=== PATIENT | female | born 1960 | race Caucasian/White ===

== ENCOUNTER 2020-01-09 21:55 | Emergency (ER) | payer OTHER, SELFPAY ==
--- NOTE | ~2020-01-09 | XR_ITS ---
EXAMINATION: XR chest 2V DATE: 01/09/2020 23:14 INDICATION: Syncope and weakness TECHNIQUE: PA and lateral views of the chest are obtained. COMPARISON: 11/22/2018 FINDINGS: There is scarring of the lung apices. The lungs are free of acute opacities. There is no pl eural effusion or pneumothorax. The cardiomediastinal silhouette is normal. There is mild thoracic sp ondylosis. IMPRESSION: 1. No acute cardiopulmonary abnormality. Reviewed, dictated and finalized at location A. [employer]
[2020-01-09 22:05] VITALS: BP 123/79; PULSE 85; RESP 22; TEMP 36.1; O2SAT 100
--- NOTE | 2020-01-09 22:37 | ED.SYNCOPE ---
HPI - Syncope General Chief Complaint: Syncope Stated Complaint: seizure ?? 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 She states that she went and saw a movie with some friends, and was then out having a couple drinks afterwards when she became very hot and lightheaded, and then had a syncopal episode. Per friend reports that the pt was sitting in a chair talking when she began to stare off and then had a syncopal episode. They state that they lowered the pt to the ground and didn't think she was breathing, so they tried to start CPR tried . They note that the pt was LOC for roughly 20 seconds and did not have any convulsions and was not postictal. The pt notes that she hadn't eaten much and that she has had similar episodes in the past. The only symptoms the pt reports at this time is fatigue and chest wall tenderness. She denies any SOB, VINSON, CP, N/V/D, or ABD pain. MD complaint: loss of consciousness Onset (ago): minute(s) Duration of episode: 20 -: second(s) Description of event: stopped breathing (possibly) Prodromal symptoms: lightheaded and other (hot) Witnessed: Yes - by Bystander Context: alcohol use Injuries sustained associated with event: none Current symptoms: other (fatigue and chest wall tenderness) History: previous syncopal episode Treatments prior to arrival: CPR (tried but the pt pulled away immediately) Related Data Allergies Allergy/AdvReac Type Severity Reaction Status Date / Time acyclovir Allergy Unknown Unknown Verified 05/19/19 07:19 Sulfa (Sulfonamide Allergy Unknown Verified 09/09/18 08:06 Antibiotics) Review of Systems Review of Systems: All systems reviewed & are unremarkable except as noted in HPI and below Constitutional: Constitutional: Reports fatigue and Reports other (felt hot - resolved) Cardiovascular: Cardiovascular: Denies chest pain, Reports lightheadedness (resolved) and Reports other (chest wall tenderness) Respiratory: Respiratory: Denies dyspnea Gastrointestinal: Gastrointestinal: Denies abdominal pain, Denies diarrhea, Denies nausea and Denies vomiting Neurologic: Reports syncope and Denies headache(s) [facility] Past Medical History Medical History Arthritis Chicken pox Constipation Depression Herpes Mumps Pain Pneumonia Simple endometrial hyperplasia Surgical History Surgical History H/O section 1981 H/O: hysterectomy 2010 Family History Family History Mother Diabetes mellitus Father Family history of malignant neoplasm Social History Social History Smoking status: Never smoker Alcohol intake: current Exam Narrative: Exam Narrative: GENERAL: Well-appearing, well-nourished, and in no acute distress. HEAD: Normocephalic, atraumatic. ENT: Mucous membranes moist. CHEST: Clear to auscultation. No respiratory distress. Mild sternal tenderness HEART: Regular rate and rhythm. Normal peripheral pulses. ABDOMEN: Soft, nontender, nondistended. EXTREMITIES: Normal range of motion. No edema. SKIN: Warm, dry, no rash. NEURO: Alert and oriented x3. Course Course Emergency Course: Patient initially dizzy when going from lying to sitting and could not stand up. After IV fluid patient feels much better is able to ambulate without difficulty. Informed of results. Discharge home. Vital Signs Vital signs: Vital Signs Temperature 97 F L 01/09/20 22:05 Pulse Rate 85 01/09/20 22:05 Respiratory Rate 22 H 01/09/20 22:05 Blood Pressure 123/79 01/09/20 22:05 Pulse Oximetry 100 01/09/20 22:05 Temperature 97 F L 01/09/20 22:05 Pulse Rate 84 01/09/20 23:48 Respiratory R
--- NOTE | 2020-01-09 22:44 | ECG_ITS ---
Measurements Intervals [place] Rate: 79 P: 61 KS: 159 QRS: 42 QRSD: 93 T: 59 QT: 382 QTc: 439 Interpretive Statements SINUS RHYTHM POSSIBLE LEFT ATRIAL ENLARGEMENT BASELINE ARTIFACT- I, II, AVR, AVL BORDERLINE ECG Electronically Signed On 01-10-2020 8:22:58 [employer]ASE[employer]ALL SCOUT by Mo Burns D.O.
[2020-01-09 23:02] VITALS: BP 119/73
[2020-01-09 23:03] VITALS: BP 119/73; BP 124/81; PULSE 82; PULSE 83; RESP 16; O2SAT 100
[2020-01-09] MEDS: SODIUM CHLORIDE 0.9% IV 1,000 ML 999 ML IV CONT (23:04)
[2020-01-09 23:12] LABS: Basophils Absolute Auto 0.1 K/mm3 (0.0-0.1); Basophils Percent Auto 0.9 % (0.2-1.2); Eosinophils Absolute Auto 0.2 K/mm3 (0-0.3); Hematocrit 37.1 % (37.0-47.0); Hemoglobin 11.8 g/dL (12.0-15.0); Immature Granulocyte Absolute 0.04 K/mm3 (0.00-0.031); Immature Granulocyte Percent A 0.7 % (0-0.5); Lymphocytes Percent Auto 27.9 % (18.3-44.2); Mean Corpuscular HGB Conc 31.8 g/dl (32-36); Mean Corpuscular Hemoglobin 27.1 pg (26-34); Mean Corpuscular Volume 85.1 fl (80-100); Mean Platelet Volume 9.6 fl (7.4-10.4); Monocytes Absolute Auto 0.4 K/mm3 (0.1-0.6); Monocytes Percent Auto 7.6 % (2.6-8.5); Neutrophils Absolute Auto 3.2 K/mm3 (1.3-6.7); Neutrophils Percent Auto 59.9 % (45.5-73.1); Platelet Count Result 199 k/mm3 (150-375); Red Blood Count 4.36 M/mm3 (4.2-5.4); Red Cell Distribution Width 12.7 % (11.5-14.5); White Blood Count 5.4 K/mm3 (4.5-10.0)
[2020-01-09 23:17] LABS: Blood Urea Nitrogen 16 mg/dL (7-17); Calcium 9.2 mg/dL (8.4-10.2); Carbon Dioxide 23 mmol/L (22-30); Chloride 99 mmol/L (98-107); Estimated Glomerular Filt Rate > 60; Glucose 91 mg/dL (65-105); Potassium 3.4 mmol/L (3.4-5.0); Sodium 137 mmol/L (137-145)
[2020-01-09 23:28] LABS: INR 0.9; Prothrombin Time 12.1 Seconds (11.1-14.7)
[2020-01-09 23:29] LABS: Partial Thromboplastin Time 24.2 SECONDS (22.3-36.8); Troponin I < 0.012 ng/mL (0.000-0.034)
[2020-01-09 23:48] VITALS: BP 133/73; PULSE 84; RESP 17; O2SAT 100
[2020-01-10 00:51] LABS: Add Urine Microscopic? YES; Appearance Urine Clear (Clear); Bacteria Urine Trace /hpf; Bilirubin Urine Negative (Negative); Blood Urine 1+ (Negative); Color Urine Yellow (Yellow); Glucose Urine UA Negative (Negative); Ketones Urine Trace mg/dL (Negative); Leukocyte Esterase Ur Negative LEU/UL (Negative); Mucus Urine Rare /lpf; Nitrate Urine Negative (Negative); Protein Urine Negative (Negative); RBC Urine 0-2 /hpf (0-2); Specific Grav Ur 1.011 (1.001-1.035); Squamous Epithelial Cell Urine Many /hpf (Few); Urobilinogen Urine Negative mg/dL (<2.0)
--- NOTE | 2020-01-15 20:26 | PC.NURSE ---
LATE ENTRY This note is being entered to document information to the patient's record. The following information was omitted on [01/09/2020], ns stop time [id number] by [sobia patel].
== END 2020-01-10 01:10 | disposition home or self-care (01) ==
PROVIDERS: Emergency Provider Emergency Medicine; PCP Internal Medicine
DX: R55 Syncope and collapse (principal); M19.90 Unspecified osteoarthritis, unspecified site
CPT/HCPCS: 36415; 71046; 80048; 81001; 84484; 85025; 85610; 85730; 93005; 96360; 99284; J7030

== ENCOUNTER 2020-05-14 14:44 | Outpatient (CLI) | payer OTHER, SELFPAY ==
--- NOTE | 2020-05-14 15:00 | ECHO_ITS ---
Patient Info Name: Giuliano Beckett Age: 60 years : 1960 Gender: Female Ht: 68 in Wt: 170 lbs BSA: 1.94 m2 HR: 65 bpm BP: 144 / 82 mmHg Heart Rhythm: Sinus Rhythm Technical Quality: Good Exam Date: 05/14/2020 3:08 PM Exam Location: [facility] Pulmonary Patient Status: Outpatient Admit Date: 05/14/2020 Staff Ordering Physician: Naima Morrison NP Math Teacher: Tucker Peterson RDCS Attending Provider: Naima Morrison NP Referring Physician: Tamiko SIMON; Exam Type: CA echo doppler color flow Study Info Indications R60.9 - Edema, unspecified Complete two-dimensional, color flow and Doppler transthoracic echocardiogram is performed. History/Risk Factors Edema, HTN. Summary 1. Left ventricular chamber dimension is normal. 2. Left ventricular systolic function is normal, estimated at 55-60%. 3. The left ventricular diastolic function is normal. 4. E/e' 8 is not elevated. Left Ventricle E/e' 8 is not elevated. Left ventricular chamber dimension is normal. Left ventricular systolic function is normal, estimated at 55-60%. The left ventricular diastolic function is normal. Right Ventricle Right ventricular chamber dimension is normal. Right ventricular systolic function is normal. Left Atria Left atrial chamber dimension is normal. Right Atria Right atrial chamber dimension is normal. Aortic Valve The aortic valve is trileaflet. There is no aortic valve stenosis. There is no aortic valve regurgitation. Pulmonic Valve There is no pulmonic regurgitation. Mitral Valve There is no mitral valve stenosis. There is no mitral valve regurgitation. Tricuspid Valve There is no tricuspid valve regurgitation. Pericardium/Pleural There is no pericardial effusion. Inferior Vena Cava Normal inferior vena cava with >50% collapse upon inspiration consistent with normal right atrial pressure, 5 mmHg. Aorta The aortic root size at the sinus of Valsalva is normal. Left Ventricular Outflow Tract Name Value Normal LVOT 2D LVOT Diameter 1.7 cm LVOT Doppler LVOT Peak Gradient 3 mmHg LVOT Mean Gradient 2 mmHg LVOT VTI 20 cm LVOT VTI/AV VTI Ratio 0.8 LVOT Stroke Volume 47 ml LVOT CO 3.5 l/min LVOT CI 1.8 l/min/m2 Mitral Valve Name Value Normal MV Doppler MV Decel [place] 329 cm/s2 MV PHT 64 ms MV Area (PHT) 3.5 cm2 4.0-5.0 MV Diastolic Function MV E Peak Velocity 72 cm/s MV A Peak Velocity 57 c
== END 2020-05-14 14:45 | disposition home or self-care (01) ==
PROVIDERS: PCP Internal Medicine; Visit Provider Nurse Practitioner
DX: R55 Syncope and collapse (principal); R60.9 Edema, unspecified; I10 Essential (primary) hypertension
CPT/HCPCS: 93306

== ENCOUNTER → 2021-12-19 09:35 | Outpatient (CLI) | payer OTHER, SELFPAY ==
[2021-12-19 19:02] LABS: SARS-CoV-2 RNA PCR Positive
== END ==
PROVIDERS: PCP Internal Medicine; Visit Provider Nurse Practitioner
DX: U07.1 COVID-19 (principal); R05.9 Cough, unspecified; J02.9 Acute pharyngitis, unspecified
CPT/HCPCS: C9803; U0003; U0005

== ENCOUNTER 2022-10-10 09:01 | Outpatient (CLI) | payer OTHER, SELFPAY ==
[2022-10-10 18:55] LABS: Basophils Absolute Auto 0.1 K/mm3 (0.0-0.1); Eosinophils Absolute Auto 0.2 K/mm3 (0-0.3); Eosinophils Percent Auto 3.1 % (0-4.4); Hematocrit 39.2 % (37.0-47.0); Hemoglobin 12.1 g/dL (12.0-15.0); Immature Granulocyte Absolute 0.01 K/mm3 (0.00-0.031); Immature Granulocyte Percent A 0.2 % (0-0.5); Lymphocytes Absolute Auto 1.29 K/mm3 (0.9-3.2); Lymphocytes Percent Auto 22.1 % (18.3-44.2); Mean Corpuscular HGB Conc 30.9 g/dl (32-36); Mean Corpuscular Hemoglobin 26.9 pg (26-34); Mean Corpuscular Volume 87.1 fl (80-100); Mean Platelet Volume 9.7 fl (7.4-10.4); Monocytes Absolute Auto 0.5 K/mm3 (0.1-0.6); Monocytes Percent Auto 8.9 % (2.6-8.5); Neutrophils Absolute Auto 3.8 K/mm3 (1.3-6.7); Neutrophils Percent Auto 64.7 % (45.5-73.1); Platelet Count Result 275 k/mm3 (150-375); Red Cell Distribution Width 12.9 % (11.5-14.5); White Blood Count 5.8 K/mm3 (4.5-10.0)
[2022-10-10 19:22] LABS: Vitamin D 25 Hydroxy 41.7 ng/mL
[2022-10-10 21:08] LABS: Alanine Aminotransferase 72 U/L (6-35); Albumin Level 4.6 g/dL (3.5-5.1); Alkaline Phosphatase 159 U/L (38-126); Anion Gap 14 mmol/L (8-16); Aspartate Amino Transferase 60 U/L (14-36); Bilirubin,Total 0.5 mg/dL (0.2-1.3); Blood Urea Nitrogen 13 mg/dL (7-17); Calcium 10.5 mg/dL (8.4-10.2); Carbon Dioxide 27 mmol/L (22-30); Chloride 107 mmol/L (98-107); Estimated Glomerular Filt Rate > 60; Glucose 100 mg/dL (65-110); Potassium 5.1 mmol/L (3.4-5.0); Sodium 148 mmol/L (137-145)
[2022-10-10 23:20] LABS: Folic Acid > 20.0 ng/mL (2.76->20)
== END 2022-10-10 09:02 | disposition home or self-care (01) ==
LOC: ANHGOSHLAB 09:05
PROVIDERS: PCP Internal Medicine; Visit Provider Internal Medicine
DX: J40 Bronchitis, not specified as acute or chronic (principal); R05.9 Cough, unspecified; R53.83 Other fatigue
CPT/HCPCS: 36415; 80053; 82306; 82607; 82746; 84443; 85025

== ENCOUNTER → 2022-10-10 09:14 | Outpatient (CLI) | payer OTHER, SELFPAY ==
--- NOTE | ~2022-10-10 | XR_ITS ---
XR chest 2V DATE: 10/10/2022 09:27 INDICATION: Cough, bronchitis TECHNIQUE: 2 views COMPARISON: January 09, 2020 PA and lateral chest FINDINGS: Normal heart size. No hilar or mediastinal enlargement. Azygos lobe, normal variant. Moderate hyperinflation of the lungs. No pulmonary infiltrate or consoli dation, pleural effusion or pulmonary vascular congestion or pneumothorax. IMPRESSION: No active cardiopulmonary disease Reviewed, dictated and finalized at location A. TIC TOOL MAKER
== END ==
PROVIDERS: PCP Internal Medicine; Visit Provider Internal Medicine
DX: R05.9 Cough, unspecified (principal); J40 Bronchitis, not specified as acute or chronic
CPT/HCPCS: 71046

== ENCOUNTER 2022-10-25 15:35 | Outpatient (CLI) | payer OTHER, SELFPAY ==
[2022-10-25 19:06] LABS: Alanine Aminotransferase 30 U/L (6-35); Albumin Level 4.4 g/dL (3.5-5.1); Alkaline Phosphatase 71 U/L (38-126); Anion Gap 6 mmol/L (8-16); Aspartate Amino Transferase 46 U/L (14-36); Bilirubin,Total 0.5 mg/dL (0.2-1.3); Blood Urea Nitrogen 16 mg/dL (7-17); Carbon Dioxide 30 mmol/L (22-30); Chloride 104 mmol/L (98-107); Estimated Glomerular Filt Rate > 60; Glucose 90 mg/dL (65-110); Potassium 4.1 mmol/L (3.4-5.0); Sodium 140 mmol/L (137-145)
== END 2022-10-25 15:36 | disposition home or self-care (01) ==
LOC: ANHGOSHLAB 15:37
PROVIDERS: PCP Internal Medicine; Visit Provider Internal Medicine
DX: E87.0 Hyperosmolality and hypernatremia (principal); R74.8 Abnormal levels of other serum enzymes
CPT/HCPCS: 36415; 80053

== ENCOUNTER 2023-02-27 15:08 | Outpatient (CLI) | payer OTHER, SELFPAY ==
[2023-02-27 21:20] LABS: Free T4 Free Thyroxine 0.98 ng/mL (0.78-2.19)
[2023-02-27 21:45] LABS: Hemoglobin A1C 5.6 % (<5.7)
== END 2023-02-27 15:09 | disposition home or self-care (01) ==
LOC: ANHGOSHLAB 15:10
PROVIDERS: PCP Internal Medicine; Visit Provider Nurse Practitioner
DX: Z13.9 Encounter for screening, unspecified (principal)
CPT/HCPCS: 36415; 83036; 84439; 84443

== ENCOUNTER 2023-09-26 08:15 | Outpatient (CLI) | payer OTHER, SELFPAY ==
[2023-09-26 18:56] LABS: Basophils Absolute Auto 0.1 K/mm3 (0.0-0.1); Basophils Percent Auto 0.9 % (0.2-1.2); Eosinophils Absolute Auto 0.2 K/mm3 (0-0.3); Eosinophils Percent Auto 2.8 % (0-4.4); Hematocrit 44.1 % (37.0-47.0); Hemoglobin 13.5 g/dL (12.0-15.0); Immature Granulocyte Absolute 0.01 K/mm3 (0.00-0.031); Immature Granulocyte Percent A 0.1 % (0-0.5); Lymphocytes Absolute Auto 1.55 K/mm3 (0.9-3.2); Lymphocytes Percent Auto 23.2 % (18.3-44.2); Mean Corpuscular HGB Conc 30.6 g/dl (32-36); Mean Corpuscular Hemoglobin 26.8 pg (26-34); Mean Corpuscular Volume 87.7 fl (80-100); Mean Platelet Volume 9.7 fl (7.4-10.4); Monocytes Absolute Auto 0.5 K/mm3 (0.1-0.6); Monocytes Percent Auto 6.9 % (2.6-8.5); Neutrophils Absolute Auto 4.4 K/mm3 (1.3-6.7); Neutrophils Percent Auto 66.1 % (45.5-73.1); Platelet Count Result 253 k/mm3 (150-375); Red Blood Count 5.03 M/mm3 (4.2-5.4); Red Cell Distribution Width 13.9 % (11.5-14.5); White Blood Count 6.7 K/mm3 (4.5-10.0)
[2023-09-26 19:38] LABS: Alanine Aminotransferase 29 U/L (6-35); Albumin Level 4.6 g/dL (3.5-5.1); Alkaline Phosphatase 58 U/L (38-126); Anion Gap 6 mmol/L (8-16); Aspartate Amino Transferase 36 U/L (14-36); Bilirubin,Total 0.5 mg/dL (0.2-1.3); Blood Urea Nitrogen 17 mg/dL (7-17); Calcium 9.6 mg/dL (8.4-10.2); Carbon Dioxide 30 mmol/L (22-30); Chloride 104 mmol/L (98-107); Cholesterol 280 mg/dL (0-200); Estimated Glomerular Filt Rate > 60; Glucose 83 mg/dL (65-110); HDL Direct 109 mg/dL; Potassium 4.9 mmol/L (3.4-5.0); Sodium 140 mmol/L (137-145); Triglycerides 71 mg/dL (<150)
[2023-09-26 19:48] LABS: LDL Cholesterol Direct 119 mg/dL
== END 2023-09-26 08:16 | disposition home or self-care (01) ==
PROVIDERS: PCP Internal Medicine; Visit Provider Nurse Practitioner
DX: R74.8 Abnormal levels of other serum enzymes (principal); E55.9 Vitamin D deficiency, unspecified
CPT/HCPCS: 36415; 80053; 80061; 82306; 85025

== ENCOUNTER 2024-01-28 07:26 | Outpatient (CLI) | payer MEDICARE, SELFPAY ==
--- NOTE | ~2024-01-28 | DEXA_ITS ---
Bone Density Report Name: RODRIGO LAY Age: 63 Sex: Female Ethnicity: White Date of : 1960 Indication: postmenopausal; screening for osteoporosis; parental hip fracture; hysterectomy; Referring Provider: PRINCESS RIOJAS Study: Bone densitometry was performed. Exam Date: January 28, 2024 Accession number: [id number] Bone Density: Region BMD T-score Z-score Classification AP Spine(L1-L4) 0.983 -0.6 1.2 Normal Femoral Neck (Left) 0.617 -2.1 -0.5 Osteopenia Total Hip (Left) 0.827 -0.9 0.3 Normal Femoral Neck (Right) 0.676 -1.6 0.0 Osteopenia Total Hip (Right) 0.859 -0.7 0.6 Normal Total Hip Mean 0.843 -0.8 0.5 Normal World Health Organization criteria for BMD impression classify patients as: Normal (T-score at or above -1.0), Osteopenia (T-score between -1.0 and -2.5), or Osteoporosis (T-score at or below -2.5). 10-year Fracture Risk(1): Major Osteoporotic Fracture 20% Hip Fracture 2.0% Reported Risk Factors: [place] (), Neck BMD=0.617, BMI=27.6, parental fracture (1) FRAX(R) Version 3.08. Fracture probability calculated for an untreated patient. Fracture probability may be lower if the patient has received treatment. Clinical Information Provided by Patient: Parent has had a hip fracture Has used the following medications: Vitamin D Has the following medical conditions: Hysterectomy Patient maximum height was 68 Drinks caffeinated beverages Onset of menses at age 13 Number of children 1 Impression: The patient has low bone mass, based on the Left Femoral Neck T-score. The patient has an estimated ten-year risk of hip fracture of 2% and an estimated ten-year risk of major fracture of 20%, based on the WHO FRAX algorithm. The patient has risk factors, including: parental hip fracture. Discussion: BONE DENSITY IS LOW AT ONE OR MORE SKELETAL SITES. THE PATIENT'S BMD AND CLINICAL RISK FACTORS CONTRIBUTE TO THIS PATIENT'S INCREASED RISK OF FRACTURE. This patient's lowest T-score is low at one or more skeletal sites. It meets the World Health Organization's (WHO) criteria for ?low bone mass? (T-score between -1.0 and -2.5). The patient's 10-year risk of a major osteoporotic fracture as calculated by FRAX exceeds the threshold where pharmacological therapy is recommended by the National Osteoporosis Foundation (NOF). However, all treatment decisions require clinical judgment and consideration of individual patient factors, including patient preferences, comorbidities, previous drug use, risk factors not captured in the FRAX model (e.g., frailty, falls, vitamin D deficiency, increased bone turnover, interval significant decline in bone density) and possible under or overestimation of fracture risk by FRAX. The patient should follow a healthful lifestyle (good nutrition with
--- NOTE | ~2024-01-28 | MM_ITS ---
EXAMINATION: MM screening calvin BI w derek HISTORY: Screening mammogram TECHNIQUE: Craniocaudal and mediolateral oblique 3-D tomosynthesis images were obtained and synthetic 2-D images were generated. CAD analysis was submitted and interpreted. COMPARISON: 05/07/2017 bilateral screening mammogram BREAST PARENCHYMAL COMPOSITION: There are scattered areas of fibroglandular density. FINDINGS: A soft tissue mass is suggested in the posterior aspect of the central right breast. Diagno stic right mammogram and right breast ultrasound examination are recommended for further evaluation. Otherwise no suspicious mass, architectural distortion, malignant calcification, skin thickening or r etraction or significant new or developing density of either breast is detected. IMPRESSION: 1. Soft tissue mass suggested in posterior central right breast 2. Diagnostic right mammogram and right breast ultrasound examination are recommended BI-RADS Category 0: Incomplete: Needs additional imaging evaluation. Reviewed, dictated and finalized at location A. ENTICE PATTERN MAKER IMPRESSION: 1. Soft tissue mass suggested in posterior central right breast 2. Diagnostic right mammogram and right breast ultrasound examination are recom mended BI-RADS Category 0: Incomplete: Needs additional imaging evaluation.
== END 2024-01-28 07:27 | disposition home or self-care (01) ==
PROVIDERS: PCP Internal Medicine; Visit Provider Internal Medicine
DX: Z12.31 Encounter for screening mammogram for malignant neoplasm of breast (principal); Z78.0 Asymptomatic menopausal state; R92.8 Other abnormal and inconclusive findings on diagnostic imaging of breast; M85.852 Other specified disorders of bone density and structure, left thigh; M85.851 Other specified disorders of bone density and structure, right thigh
CPT/HCPCS: 77063; 77067; 77080

== ENCOUNTER 2024-02-21 06:02 | Day surgery (SDC) | payer MEDICARE, SELFPAY ==
[2024-01-15 07:07] VITALS: BMI 27.2
[2024-02-21 06:25] VITALS: BMI 27.1
[2024-02-21 06:26] VITALS: BP 124/86; PULSE 60; RESP 16; TEMP 36.9; O2SAT 100
--- NOTE | 2024-02-21 07:05 | PM.HPGS ---
History of Present Illness History of Present Illness Consent: Risks, benefits, and alternatives have been discussed and questions answered. Patient agrees to proceed with procedure. Chief complaint: Family history of colon cancer Narrative: Giuliano Beckett is a 63 year old female in colonoscopy. Patient's current weight appetite and bowel movements are normal. Patient denies abdominal pain. She has had no bloating. Family history is significant that her father had colon cancer. Her mother also had colon polyps. Previous colonoscopy 5 years ago was unremarkable. Review of Systems Review of Systems: Review of systems noncontributory. [facility] Past Medical History Medical History Arthritis Chicken pox Constipation Depression Herpes Lumbar stenosis Lumbar stenosis Mumps Pain Pneumonia Simple endometrial hyperplasia Surgical History Surgical History H/O section 1981 H/O: hysterectomy 2010 Family History Family History Mother Diabetes mellitus Father Family history of malignant neoplasm Social History Social History (Updated 05/23/23 @ 10:05 by Cristiana Casey) Social History: Caffeine-daily Smoking status: Never smoker Alcohol intake: current Drinks per week: 6 Alcohol use details: Pt drinks socially. Substance use: never Substance use type: does not use Lack of Transportation: No Lack of Food: Never True Current Housing: I Have Housing Concerned About Future Housing: No Difficulty Paying Gas/Electric Bills: No Difficulty Paying for Meds: No Currently Unemployed: No Education: Bachelor's Degree Difficulty w/ Childcare or Family Care: No Meds Home Medications and Allergies Home Medications Medication Instructions Recorded Confirmed Type cholecalciferol (vitamin D3) 50 2,000 unit PO DAILY 04/02/20 02/21/24 History mcg (2,000 unit) capsule (Vitamin D3) estradiol 10 mcg vaginal insert 10 mcg vaginal DIRECTED 02/04/24 02/21/24 History (Imvexxy Maintenance Pack) hydroxyzine HCl 25 mg tablet 25 mg PO HS PRN Insomnia 02/04/24 02/21/24 History Allergies Allergy/AdvReac Type Severity Reaction Status Date / Time acyclovir Allergy Unknown Swelling Verified 02/21/24 06:17 Sulfa (Sulfonamide Allergy Unknown Swelling Verified 03/28/24 06:17 Antibiotics) Vital Signs Vital Signs - 24 hr 02/21/24 06:26 Temperature 98.5 F Pulse Rate 60 Respiratory Rate 16 Blood Pressure 124/86 Pulse Oximetry 100 Oxygen Delivery Room Air Exam Narrative: Physical exam reveals patient to be alert. Vital Signs stable. HEENT exam is unremarkable. Patient is anicteric. Lungs are clear to auscultation and percussion. Heart is without murmur or extra sounds. Abdomen bowel sounds are present soft nontender no organomegaly. Digital external rectal exam is normal. Assessment and Plan Assessment and plan (1) Family hx of colon cancer: Code(s): Z80.0 - Family history of malignant neoplasm of digestive organs Status: Acute Assessment and Plan: Patient's father has had colon cancer. her mother has had colon polyps. Plan for surveillance colonoscopy now consider this at 5 year intervals.
--- NOTE | 2024-02-21 07:07 | WPDANESEPPF ---
Anes - Initial Pre Proc Eval Procedure: Operation Date: 02/21/24 07:30 Proposed Procedures p Colonoscopy - Pelon Daly MD Date/Time: 02/21/24 07:07 Surgeon: Pelon Daly MD Pre Op Diagnosis: Family history of colon cancer Patient Data Age: 63 Gender: F Height: 1.73 m Weight: 81.1 kg Last Vital Signs Temp 36.9 C 02/21/24 06:26 Pulse 60 02/21/24 06:26 Resp 16 02/21/24 06:26 BP 124/86 02/21/24 06:26 Pulse Ox 100 02/21/24 06:26 O2 Del Method Room Air 02/21/24 06:26 Allergies Allergy/AdvReac Type Severity Reaction Status Date / Time acyclovir Allergy Unknown Swelling Verified 02/21/24 06:17 Sulfa (Sulfonamide Allergy Unknown Swelling Verified 02/21/24 06:17 Antibiotics) Home Medications Medication Instructions Recorded Confirmed Type cholecalciferol (vitamin D3) 50 2,000 unit PO DAILY 04/02/20 02/21/24 History mcg (2,000 unit) capsule (Vitamin D3) estradiol 10 mcg vaginal insert 10 mcg vaginal DIRECTED 02/04/24 02/21/24 History (Imvexxy Maintenance Pack) hydroxyzine HCl 25 mg tablet 25 mg PO HS PRN Insomnia 02/04/24 02/21/24 History Patient hx anesthesia problems: none Family hx anesthesia problems: none Results Review: All pre-operative results and documents have been reviewed as part of the pre-operative evaluation. [facility] Past Medical History Medical History Arthritis Chicken pox Constipation Depression Herpes Lumbar stenosis Lumbar stenosis Mumps Pain Pneumonia Simple endometrial hyperplasia Surgical History Surgical History H/O section 1981 H/O: hysterectomy 2010 Family History Family History Mother Diabetes mellitus Father Family history of malignant neoplasm Social History Social History Social History: Caffeine-daily Smoking status: Never smoker Alcohol intake: current Drinks per week: 6 Alcohol use details: Pt drinks socially. Substance use: never Substance use type: does not use Lack of Transportation: No Lack of Food: Never True Current Housing: I Have Housing Concerned About Future Housing: No Difficulty Paying Gas/Electric Bills: No Difficulty Paying for Meds: No Currently Unemployed: No Education: Bachelor's Degree Difficulty w/ Childcare or Family Care: No Anes - Eval Final PreProcedure Day of Procedure 02/21/24 07:07 Patient weight: overweight Heart: regular rate and rhythm Lungs: clear to auscultation Airway: Mallampati scale class II Neurological: alert and oriented Last oral intake: >/= 8 hours ASA classification: II Emergent: no Anesthetic plan: proceed Anesthesia type and monitoring: general GIVS and standard monitoring Results Review: All pre-operative results and documents have been reviewed as part of the pre-operative evaluation. Informed Consent: The patient's anesthetic plan and its attendant risks and benefits were discussed with the patient/family/POA. Questions were solicited and answers provided to the satisfaction of the patient/family/POA.
[2024-02-21] MEDS: LACTATED RINGERS 1,000 ML 150 ML IV CONT (07:12)
[2024-02-21 07:41] VITALS: BP 127/77; PULSE 72; RESP 14; O2SAT 100
[2024-02-21 07:51] VITALS: BP 144/70; PULSE 60; RESP 16; O2SAT 100
[2024-02-21 08:01] VITALS: BP 154/99; PULSE 68; RESP 16; O2SAT 100
--- NOTE | 2024-02-21 08:06 | WPDANESPN ---
Anes - Prog Note Post-Op Date/Time: 02/21/24 08:06 Cardiovascular status: normal Respiratory status: normal Airway patency: baseline Mental status: baseline Post-Op hydration status: normal Vital Signs: Last Vital Signs Temp 36.9 C 02/21/24 06:26 Pulse 60 02/21/24 07:51 Resp 16 02/21/24 07:51 BP 144/70 H 02/21/24 07:51 Pulse Ox 100 02/21/24 07:51 O2 Del Method Room Air 02/21/24 07:51 Pain Score (VAS): 0/10 I/O: Intake & Output 02/20/24 02/21/24 02/21/24 23:59 07:59 15:59 Intake Total 500 Balance 500 Patient Feedback: Patient satisfied with anesthetic care.
== END 2024-02-21 08:18 | disposition home or self-care (01) ==
PROVIDERS: PCP Internal Medicine; Visit Provider Internal Medicine Gastroenterology
PROC: 0DJD8ZZ Inspection of Lower Intestinal Tract, Via Natural or Artificial Opening Endoscopic (ICD-10-PCS; CPT 45378; principal; 2024-02-21 07:30)
DX: Z80.0 Family history of malignant neoplasm of digestive organs (principal); Z12.11 Encounter for screening for malignant neoplasm of colon; K64.8 Other hemorrhoids
CPT/HCPCS: 45378

== ENCOUNTER 2024-03-10 10:50 | Outpatient (CLI) | payer MEDICARE, SELFPAY ==
--- NOTE | ~2024-03-10 | MMUS_ITS ---
EXAMINATION: MM diagnostic calvin RT w derek, US breast RT complete HISTORY: Follow-up right breast asymmetries TECHNIQUE: Additional 3-D tomosynthesis images of the right breast were performed and synthetic 2-D i mages were generated. CAD analysis was submitted and interpreted. High resolution complete right kar st ultrasound was performed. COMPARISON: 01/28/2024 BREAST PARENCHYMAL COMPOSITION: Not dense: There are scattered areas of fibroglandular density. FINDINGS: MAMMOGRAPHIC FINDINGS: There are no suspicious masses, calcifications or architectural distortion in the right breast to sug gest malignancy. ULTRASOUND: Complete US of all 4 quadrants of the right breast and retroareolar region was reviewed. 12:30, 4 cm from the nipple, there is a benign-appearing intramammary lymph node measuring 4 mm. No suspicious ma sses to suggest malignancy. IMPRESSION: 1. No evidence for malignancy in the right breast. 2. Routine yearly screening mammogram and regular clinical breast examination are recommended. BI-RADS CATEGORY 2 - BENIGN FINDINGS Reviewed, dictated and finalized at location B. IMPRESSION: 1. No evidence for malignancy in the right breast. 2. Routine yearly screening mammogram and regular clinical breast examination a re recommended. BI-RADS CATEGORY 2 - BENIGN FINDINGS
== END 2024-03-10 10:51 | disposition home or self-care (01) ==
LOC: ANHIMG 10:55
PROVIDERS: PCP Internal Medicine; Visit Provider Obstetrics & Gynecology Gynecology
DX: R92.8 Other abnormal and inconclusive findings on diagnostic imaging of breast (principal)
CPT/HCPCS: 76641; 77061; 77065; G0279

== ENCOUNTER 2025-03-05 00:30 | Day surgery (SDC) | payer MEDICARE, OTHER, SELFPAY ==
--- NOTE | 2025-02-19 09:53 | PC.NURSE ---
Report to the Outpatient Waiting Room, entrance under the green pavilion located off [facility], at time _10 AM on date _03/05/25 . Planned Procedure Time: ___1200 NOON .? Time changes happen often and if your time is changed the preop area will call you the afternoon before. - You and your visitor will be asked to self-screen and do not enter if you have any COVID symptoms. Please call surgeon if you need to reschedule. - A mask is optional within the hospital at this time. Patients may have clear liquids (water, carbonated beverages, clear teas, apple juice) until 3 hours prior to surgery ( 9AM) with a maximum of 20 ounces. - No food from midnight until time of surgery and no smoking, or chewing tobacco (or any form of nicotine). No chewing gum, candy or mints. Take only the following medications with a SIP of water on the morning of surgery: NONE DO NOT STOP ANY OF YOUR OTHER PRESCRIPTION MEDICATIONS PRIOR TO SURGERY EXCEPT THE FOLLOWING Hold all vitamins and supplements for 3 days per anesthesiologist. LAST DOSE 03/01/25 Medications to discontinue per physician NONE Please no make-up, nail czech, hairspray, perfume, deodorant, or body powder the day of surgery.? No jewelry (including any body piercings) or valuables the day of surgery, leave them at home.? Please take a shower or bath the night before, or the morning of, surgery with an antibacterial soap.? Wear comfortable, loose fitting clothing.? Children are encouraged to wear pajamas. - Jewelry must be removed prior to entering the operating room.? Rings and piercings that are not removed may be cut off. - The hospital will not accept responsibility for valuables.? - Please leave all valuables, including medications, at home the day of surgery. If you are going home after surgery, a licensed road oiling truck driver must drive you home.? - NO public transportation without another adult if you receive anesthesia. - We recommend that an adult stay with you for 24 hours following discharge. - We also recommend that you do not drive, make important decision, drink alcoholic beverages, or take any drugs that were not prescribed by your health care provider for at least 24 hours after your discharge time. Follow any additional instructions given to you from your surgeon. Telephone instructions given to _PATIENT and asked if any additional questions and then verbalized understanding. Patient advised to call surgeon office or pre surgery nurse liaison [phone] if any additional questions.
[2025-02-19 10:04] VITALS: BMI 27.2
--- OUTSIDE RECORDS SUMMARY | 2025-03-05 00:33 | XMS_ITS ---
Author Organization [facility] Address [address] [place], [place] [id number] Care Team Providers Care Windows Admin Name Role Phone RIKKI BROWN Unavailable [phone] Jesse Giordano Unavailable Unavailable Allergies Allergen (clinical drug ingredient) Drug/Non Drug Allergy documented on EMR Reaction Allergy Type Onset Date Status Substance with sulfonamide structure and antibacterial mechanism of action (substance) Sulfa Antibiotics Unknown Drug Allergy Active REASON FOR VISIT bunion Medications Medication SIG (Take, Route, Fr equency, Duration) Notes Start Date End Date Status hydrOXYzine HCl 25 MG 1 tablet as needed Orally Once a day Active Social History Tobacco Use: Social History Observation Description Date Details (start date - stop date) Never Smoker NA - NA Tobacco Control (Standard) Question Answer Notes Tobacco use: Nonsmoker Vital Signs Height 68 in 07/24/2024 Weight 178 lbs 07/24/2024 BMI 27.06 kg/m2 07/24/2024 Height-cm 172.72 cm 07/24/2024 Weight-kg 80.74 kg 07/24/2024 Encounters Encounter Location Date Provider Diagnosis [facility] [address] [place], [place] [id number] 07/24/2024 RIKKI BROWN Tailor's bunion of right foot M21.621 ; Tailor's bunion of left foot M21.622 ; Pain in right foot M79.671 and Left foot pain M79.672 Assessments Encounter Date Diagnosis (ICD Code) Assessment Notes Treatment Notes Treatment Clinical Notes Section Notes 07/24/2024 Tailor's bunion of right foot (ICD-10 - M21.621) 07/24/2024 Tailor's bunion of left foot (ICD-10 - M21.622) 07/24/2024 Pain in right foot (ICD-10 - M79.671) 07/24/2024 Left foot pain (ICD-10 - M79.672) 07/24/2024 Other Surgical correction was discussed. The patient opted not to proceed at this time. Plan Of Treatment Treatment Notes Assessment Notes Other Surgical correction was discussed. The patient opted not to proceed at this time. Next Appt Details Provider Name:RIKKI NUÑEZ, 03/05/2025 12:00:00 PM, [address], [place], [address], Provider Name:RIKKI C BRANDEN NUÑEZ, 03/12/2025 09:10:00 AM, [address], [facility], [place], [place], [id number], Progress Notes * John LAYCaliOB:1960 ( 64 yo F)Acc No.[id number]:07/24/2024 Progress Notes Patient: Giuliano CALDERON Provider: Leslie Brown DPM :1960 A ge:64 Y S ex:Female Date:07/24/2024 Address:[address] [place], [place] [address] Subjective: * Chief Complaints: * B union * HPI: H PI: New Complaint P atient presents for a new patient consultation. Patient complains of an issue to the lateral side of bilateral feet. Patient states she thinks she has bunions. She has had pain for about a year. Patient denies any injury. MA: rosey. * Medical History: * Surgical History: * Hospitalization/Major Diagno stic Procedure: * Family History: F ather: unknown, cancer, lung disease. M other: unknown, Cancer, kidney stones. B rother: unknown, kidney stones, hypertension. * Social History: T obacco Use: T obacco Control (Standard) T obacco use: N onsmoker D rugs/Alcohol: D o you drink alcohol?: Yes. * Medications: T akinghydrOXYzine HCl 25 MG Tablet 1 tablet as needed Orally Once a day Medication List reviewed and reconciled with the patientTaking hydrOXYzine HCl 25 MG Tablet 1 tablet as needed Orally Once a day Medication List reviewed and reconciled with the patient * Allergies: S ulfa Antibiotics Objective: * Vitals: S hoe Size: 9.5-10, Wt:178lbs, Wt-k.74 kg, Ht: 68 in, Ht-cm: 172.72 cm, BMI:27.06Index, Body Surface Area: 1.97. * Examination: C onstitutional: Constitutional T he patient is awake, alert, well developed, well groomed and well nourished. . D ermatologic: Skin findings: S kin is warm, dry, supple with no breaks in the skin. . Nail pathology: N ails 1-5 bilateral are normal in appearance and thickness. No discoloration. . Ulcer: T here is no evidence of ulceration noted at this time . Hyperkeratotic Skin Lesion T here is no evidence of hyperkeratosis . M usculoskeletal: Muscle Strength M uscle strength is 5/5 in regards to dorsiflexion, plantarflexion, inversion, and eversion in bilateral lower extremities. . Foot Structure T he foot structure is noted to be normal bilaterally . Pain on palpation T here is no pain on palpation . Tailors Bunion T here is a laterally prominent 5th metatarsal head of the right and left foot. . Gait T here is normal gait noted . N eurologic: Muscle power: 5 /5 bilaterally . Gross sensation G ross sensation is intact to light touch. . V ascular: Dorsalis pedis pulse: 2 /4 bilateral . Posterior tibial pulse: 2 /4 bilaterally . Capillary refill: l ess than 3 seconds bilaterally . Temperature gradient: w ithin normal limits . ? X -Ray: LEFT FOOT I ncreased 4th IM ankle and prominent 5th MTH.? RIGHT FOOT I ncreased 4th IM ankle and prominent 5th MTH.? Assessment: * Assessment: 1. T ailor's bunion of right foot - M21.621 (Primary) 2 . T ailor's bunion of left foot - M21.622 3 . P ain in right foot - M79.671 4 .?Left foot pain - M79.672 Plan: * Treatment: * Immunizations: Immunization record has been reviewed and updated. * Procedure Codes: * Billing Information: * Visit Code: 02243 Office Visit, New Pt., Level 3. * Procedure Codes: * Sign off status: Completed true * Provider: Leslie Brown DPM Date: 0 07/24/2024 Generated for Isrrael weir/Joey/Herminio on: 0 03/05/2025 12:33 AM CDT History and Physical Notes * HPI (History of Present Illness) Category Sub-Category Detail Notes Category Not es HPI New Complaint Patient presents for a new patient consultation. Patient complains of an issue to the lateral side of bilateral feet. Patient states she thinks she has bunions. She has had pain for about a year. Patient denies any injury. MA: sea Examination Category Sub-Category Detail Notes Category Not es X-Ray LEFT FOOT Increased 4th IM ankle and p rominent 5th MTH RIGHT FOOT Increased 4th IM ank le and prominent 5th MTH Constitutional Constitutional The patient is a wake, alert, well developed, well groomed and well nourished. Dermatologic Skin findings: Skin is warm, dr y, supple with no breaks in the skin. Nail pathology: Nails 1-5 bilateral are normal in appearance and thickness. No discoloration. Ulcer: There is no evidence of ulceration noted at this time Hyperkeratotic Skin Lesion There is no e vidence of hyperkeratosis Musculoskeletal Muscle Strength Muscle strength is 5/5 in regards to dorsiflexion, plantarflexion, inversion, and eversion in bilateral lower extremities. Pain on palpation There is no pain on palpation Tailors Bunion There is a laterally prominent 5th metatarsal head of the right and left foot. Foot Structure The foot structure i s noted to be normal bilaterally Gait There is normal gait noted Neurologic Muscle power: 5/5 bilaterally Gross sensation Gross sensation is i ntact to light touch. Vascular Dorsalis pedis pulse: 2/4 bilateral Posterior tibial pulse: 2/4 bilaterally Capillary refill: less than 3 seconds bilaterally Temperature gradient: within normal limi ts
--- OUTSIDE RECORDS SUMMARY | 2025-03-05 00:33 | XMS_ITS | Clinical Summary ---
Author Organization [facility] Address [address] [place] [address] Care Team Providers Care Rn Compliance Name Role Phone Jan Shepherd MD, Onel Forbes Primary Care Provider Allergies Active Allergy Reactions Criticality Noted Date Comments Sulfa (Sulfonamide Antibiotics) Medications Imvexxy Maintenance Pack 10 mcg insert vaginal insert 1 Active ALPRAZolam (XANAX) 0.5 mg tablet Take 1 tablet (0.5 mg total) by mouth 2 (two) times a day 2 tablet 3 Active Additional Information Patient not taking.Reported on 11/14/2023 hydrOXYzine (ATARAX) 25 mg tablet TAKE 1 TO 2 TABLETS BY MOUTH EVERY NIGHT AT BEDTIME NEEDED 3 Active Active Problems Problem Noted Date Diagnosed Date Varicose veins of leg with pain, left 07/12/2023 Assessment & Plan (11/14/2023 8:42 AM DYE RANGE OPERATOR CLOTH): Status post left lower extremity stab phlebectomies, doing well since the procedure. No issues with the phlebectomy sites. I have recommended continuing her compression therapy can follow-up as needed. 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 Risks benefits alternatives to left lower extremity stab phlebectomies discussed, risks including bleeding, infection, need further surgery. She wished to proceed. Melanocytic nevus of face 11/21/2021 Melanocytic nevi of right ear 11/21/2021 Palpitations 06/22/2015 Overview (03/02/2017): Palpitations Immunizations Immunization Administration Dates Next Due Influenza, Quadrivalent, Spl it, Preservative Free, Intramuscular 10/03/2021 ZOSTER Recombinant 11/22/2020,09/21/2020 Surgical History Surgery Date Site/Laterality Comments VARICOSE VEIN SURGERY 09/28/2023 Left x24 LLE phlebs Medical History Medical History Date Comments No pertinent past medical history Social History Tobacco Use Types Packs/Day Years Used Date Smoking Tobacco: Never Smokeless Tobacco: Never Personal Safety Answer Date Recorded Getting School Help Needed Not on file 11/09 Comments Unknown Sex and Gender Information Value Date Recorded Sex Assigned at Not on file Legal Sex Female 10:25 AM DYE RANGE OPERATOR CLOTH Gender Identity Not on file Sexual Orientation Not on file Obstetrics History Last Filed Vital Signs Vital Sign Reading Time Taken Comments Blood Pressure 120/77 11/14/2023 8:31 AM DYE RANGE OPERATOR CLOTH Pulse 76 11/14/2023 8:31 AM DYE RANGE OPERATOR CLOTH Temperature - - Respiratory Rate - - Oxygen Saturation - - Inhaled Oxygen Concentration - - Weight 79.4 kg (175 lb) 11/14/2023 8:31 AM DYE RANGE OPERATOR CLOTH Height 172.7 cm (5' 8 ) 11/14/2023 8:31 AM DYE RANGE OPERATOR CLOTH Body Mass Index 26.61 11/14/2023 8:31 AM DYE RANGE OPERATOR CLOTH Plan of Treatment Health Maintenance Due Date Last Done Comments Breast Cancer Screening-Mammogram 1960 Colon Cancer Screening-Colonoscopy 1960 Depression Screening 1960 Fall Risk Assessment 1960 Hepatitis C Screening 1960 Osteoporosis Screening-Bone Density Scan 1960 DTaP/Tdap/Td Vaccine (1 - Tdap) 1969 Hepatitis B Screening 1976 Pneumococcal vaccine 65+ (1 of 1 - PCV) 2008 Well Visit 65+ 2023 Covid-19 Vaccine (3 - season) 2024, 01/22/2021 Influenza Vaccine (#1) 2024 10/03/2021 Zoster Vaccine Completed 11/22/2020, 09/21/2020 Insurance O Member Subscriber Plan / Payer (Ef fective 2023-Present) Name:SujitGiuliano Cornelia Relation to Subscriber:Self Name:Sujit, Giuliano Cornelia Payer ID:[id number] ([facility]) Type:MEDICARE RISK OTHER Address: [address] [facility] [place] [address] Care Teams Rn Compliance Relationship Specialty Start Date End Date Onel Montoya Jr., MD [address] [place] [address] PCP - General 06/22/15
--- OUTSIDE RECORDS SUMMARY | 2025-03-05 00:33 | XMS_ITS | Patient Health Record ---
Author Organization [facility] Address [address] [place], [place] [id number] Care Team Providers Care Analysis Internship Name Role Phone RIKKI DURAN Unavailable [phone] Jesse Giordano Unavailable Unavailable Allergies Allergen (clinical drug ingredient) Drug/Non Drug Allergy documented on EMR Reaction Allergy Type Onset Date Status Substance with sulfonamide structure and antibacterial mechanism of action (substance) Sulfa Antibiotics Unknown Drug Allergy Active Reason For Referral No Information Medications Medication SIG (Take, Route, Fr equency, Duration) Notes Start Date End Date Status hydrOXYzine HCl 25 MG 1 tablet as needed Orally Once a day Active Social History Tobacco Use: Social History Observation Description Date Details (start date - stop date) Never Smoker NA - NA Tobacco Control (Standard) Question Answer Notes Tobacco use: Nonsmoker Vital Signs Height-cm 172.72 cm 07/24/2024 Weight-kg 80.74 kg 07/24/2024 Height 68 in 07/24/2024 Weight 178 lbs 07/24/2024 BMI 27.06 kg/m2 07/24/2024 Encounters Encounter Location Date Provider Diagnosis [facility] [place] [address] [place], [place] [id number] 07/24/2024 RIKKI DURAN Tailor's bunion of right foot M21.621 ; Tailor's bunion of left foot M21.622 ; Pain in right foot M79.671 and Left foot pain M79.672 [facility] [address] [place], [place] [id number] 10/02/2024 RIKKI DURAN Tailor's bunion of right foot M21.621 ; Tailor's bunion of left foot M21.622 ; Pain in right foot M79.671 and Left foot pain M79.672 [facility] [address] [place], [place] [id number] 07/24/2024 RIKKI DURAN Assessments Encounter Date Diagnosis (ICD Code) Assessment Notes Treatment Notes Treatment Clinical Notes Section Notes 07/24/2024 Tailor's bunion of left foot (ICD-10 - M21.622) 07/24/2024 Tailor's bunion of right foot (ICD-10 - M21.621) 10/02/2024 Tailor's bunion of right foot (ICD-10 - M21.621) 10/02/2024 Tailor's bunion of left foot (ICD-10 - M21.622) We discussed both conservative and surgical treatment options. We discussed the intra-operative and post-operative treatment course. We discussed the risks and complications including, but not limited to: pain, infection, swelling, numbness, under-correction, over-correction, stiffness, no improvement, and need for further surgery. No guarantees were given, nor implied. Questions encouraged and answered. Consent reviewed and placed in chart. The following procedures are proposed - Correction of tailor's bunion 07/24/2024 Pain in right foot (ICD-10 - M79.671) 07/24/2024 Left foot pain (ICD-10 - M79.672) 10/02/2024 Pain in right foot (ICD-10 - M79.671) 10/02/2024 Left foot pain (ICD-10 - M79.672) 07/24/2024 Other Surgical correction was discussed. The patient opted not to proceed at this time. Plan Of Treatment Next Appt Details Provider Name:RIKKI NUÑEZ, 03/05/2025 12:00:00 PM, [address], [place], [address], Provider Name:RIKKI NUÑEZ, 03/12/2025 09:10:00 AM, [address], [facility], [place], [place], [id number], Insurance Providers Payer Name Payer Address Payer Phone Subscriber Number Group Number Insured Name Patient Relationship to Insured Coverage Start Date Coverage End Date [facility] [address] [address] [place] [id number] Giuliano Beckett Self - patient is the insured Medical (General) History Medical History History ICD Code varicose veins
--- OUTSIDE RECORDS SUMMARY | 2025-03-05 00:33 | XMS_ITS | Referral Summary ---
Author Organization [facility] Address [address] [place] [address] Care Team Providers Care Terra Cotta Roofer Name Role Phone Jan Shepherd MD, Onel [...] 07/12/2023 Assessment & Plan (11/14/2023 8:42 AM FOOD SPECIALIST): Status post left lower extremity stab phlebectomies, [...] Preservative Free, Intramuscular 10/03/2021 ZOSTER Recombinant 11/22/2020,09/21/2020 Social History Tobacco Use Types Packs/Day Years Used Date Smoking Tobacco: Never Smokeless Tobacco: Never Personal Safety Answer Date Recorded Getting School Help Needed Not on file 11/09 Comments Unknown Sex and Gender Information Value Date Recorded Sex Assigned at Not on file Legal Sex Female 10:25 AM FOOD SPECIALIST Gender Identity Not on file Sexual Orientation Not on file Last Filed Vital Signs Vital Sign Reading Time Taken Comments Blood Pressure 120/77 11/14/2023 8:31 AM FOOD SPECIALIST Pulse 76 11/14/2023 8:31 AM FOOD SPECIALIST Temperature - - Respiratory Rate - - Oxygen Saturation - - Inhaled Oxygen Concentration - - Weight 79.4 kg (175 lb) 11/14/2023 8:31 AM FOOD SPECIALIST Height 172.7 cm (5' 8 ) 11/14/2023 8:31 AM FOOD SPECIALIST Body Mass Index 26.61 11/14/2023 8:31 AM FOOD SPECIALIST Plan of Treatment Not on file Insurance O O Care Teams Terra Cotta Roofer Relationship Specialty Start Date End Date Onel Montoya Jr., MD [address] [place] [address] PCP - General 06/22/15
--- OUTSIDE RECORDS SUMMARY | 2025-03-05 00:33 | XMS_ITS ---
Author Organization [facility] Address [address] [place], [place] [phone] Care Team Providers Care Legal Process Specialist Name Role Phone RIKKI BROWN Unavailable [phone] Jesse Giordano Unavailable Unavailable Allergies Allergen (clinical drug ingredient) Drug/Non Drug Allergy documented on EMR Reaction Allergy Type Onset Date Status Substance with sulfonamide structure and antibacterial mechanism of action (substance) Sulfa Antibiotics Unknown Drug Allergy Active REASON FOR VISIT surgery consult Medications Medication SIG (Take, Route, Fr equency, Duration) Notes Start Date End Date Status hydrOXYzine HCl 25 MG 1 tablet as needed Orally Once a day Active Encounters Encounter Location Date Provider Diagnosis [facility] [place] [address] [place], [place] [id number] 10/02/2024 RIKKI BROWN Tailor's bunion of right foot M21.621 ; Tailor's bunion of left foot M21.622 ; Pain in right foot M79.671 and Left foot pain M79.672 Assessments Encounter Date Diagnosis (ICD Code) Assessment Notes Treatment Notes Treatment Clinical Notes Section Notes 10/02/2024 Tailor's bunion of right foot (ICD-10 [...] are proposed - Correction of tailor's bunion 10/02/2024 Pain in right foot (ICD-10 - M79.671) 10/02/2024 Left foot pain (ICD-10 - M79.672) Plan Of Treatment Treatment Notes Assessment Notes Tailor's bunion of left foot We discusse d both conservative and surgical treatment options. We [...] are proposed - Correction of tailor's bunion Next Appt Details Provider Name:RIKKI NUÑEZ, 03/05/2025 12:00:00 PM, [address], [place], [address], Provider Name:RIKKI NUÑEZ, 03/12/2025 09:10:00 AM, [address], [address], [id number], Progress Notes * ROSANNE JohnCaliOB:1960 ( 64 yo F)Acc No.[id number]:10/02/2024 Patient: Giuliano CALDERON Provider: Leslie Brown DPM :1960 A ge:64 Y S ex:Female Date:10/02/2024 Address:[address] [place] [address] [facility] Subjective: * Chief Complaints: * S urgery consult * HPI: H PI: Follow Up Visit P atient presents for follow-up visit for a tailors bunion on her left foot. Patient states their problem is unchanged. She states she would like to discuss possible surgery. MA: rosey. * Medical History: * Surgical History: * Hospitalization/Major Diagno stic Procedure: * Family History: F ather: unknown, cancer, lung disease. M other: unknown, Cancer, kidney stones. B rother: unknown, kidney stones, hypertension. * Medications: T akinghydrOXYzine HCl 25 MG Tablet 1 tablet as needed Orally Once a day Medication List reviewed and reconciled with the patientTaking hydrOXYzine HCl 25 MG Tablet 1 tablet as needed Orally Once a day Medication List reviewed and reconciled with the patient * Allergies: S ulfa Antibiotics Objective: * Vitals: * Examination: C onstitutional: Constitutional T he [...] gradient: w ithin normal limits . ? Assessment: * Assessment: 1. T ailor's bunion of right foot - M21.621 (Primary) 2 . T ailor's bunion of left foot - M21.622 3 . P ain in right foot - M79.671 4 .?Left foot pain - M79.672 Plan: * Treatment: * Procedure Codes: * Billing Information: * Visit Code: 34476 Office Visit, Est Pt., Level 4. * Procedure Codes: * Sign off status: Completed true * Provider: Leslie Brown DPM Date: 12/02/2023 Generated for Isrrael Pandey/Herminio on: 0 03/05/2025 12:32 AM CDT History and Physical Notes * HPI (History of Present Illness) Category Sub-Category Detail Notes Category Not es HPI Follow Up Visit Patient presents for follow-up visit for a tailors bunion on her left foot. Patient states their problem is unchanged. She states she would like to discuss possible surgery. MA: sea Examination Category Sub-Category Detail Notes Category Not es Constitutional Constitutional The patient is a wake, [...]
--- OUTSIDE RECORDS SUMMARY | 2025-03-05 00:33 | XMS_ITS | Continuity of Care Document ---
Author Organization [facility] Address [address] [place] [address] Phone Care Team Providers Care Butadiene Converter Utility Operator Name Role Phone Rafael DIAS, MSDmitry Unavailable Unavailable Procedures Procedure Date THERAPEUTIC EXERCISES NEUROMUSCULAR RE-ED HOT/COLD PACK ELECTRIC STIMULATION UNA PT RE-EVALUATION THERAPEUTIC EXERCISES NEUROMUSCULAR RE-ED MANUAL THERAPY HOT/COLD PACK ELECTRIC STIMULATION UNATT THERAPEUTIC EXERCISES NEUROMUSCULAR RE-ED FUNC ACTIVITY 15 MIN HOT/COLD PACK ELECTRIC STIMULATION UNATT THERAPEUTIC EXERCISES NEUROMUSCULAR RE-ED MANUAL THERAPY HOT/COLD PACK ELECTRIC STIMULATION UNATT THERAPEUTIC EXERCISES NEUROMUSCULAR RE-ED MANUAL THERAPY HOT/COLD PACK ELECTRIC STIMULATION UNATT PT EVALUATION THERAPEUTIC EXERCISES MANUAL THERAPY Advance Directives Directive Yes / No Effective Date File Name No Information Encounters Encounter Description Practice Location Reason(s) For Visit Diagnoses Date Provider Providers Copied on Encounter [facility], [address], [place], [place], [id number], tel:[phone] [place] No Information 0 3 Rafael Andres. [address] [facility], [address], [address] tel: [phone] [address], [place], [place], [address], tel:[phone] [place] No Information 8 3 Rafael Dmitry. [address] [place] [address], [address], [place] [address], . tel: [phone] [address], [place], [place], [address], tel:[phone] [place] No Information 3 Rafael Dmitry. [address] [place] [address], [place] [address], [place] [address], . tel: [phone] [address], [place], [place], [address], tel:[phone] [place] No Information 3 Rafael Dmitry. [address] [place] [address], [facility] [address] [address], . tel: [phone] [address], [place], [place], [address], tel:[phone] [place] No Information 3 Rafael Dmitry. [address] [place] [address], [place] [address], . tel: [phone] [address], [place], [address], [phone] [place] LumbagoPain in joint involving pelvic region and thigh 3 Rafael Dmitry. [address] [place] [address], [facility] [address] [address], . tel: [phone] Family History Family Member Type Diagnosis Age At Onset No Information Payers Payer name Insurance type Covered republican ID Authormac aguilar(s) [facility] [id number] Social History Type Description Quantity Date Captured Comments Sex Female Smoking Status No Information Chief Complaint And Reason For Visit No Information Reason For Referral Reason For Referral No Information History Of Present Illness Encounter Date Complaint History Of Prese nt Illness No Information Functional Status Date Functional Assessmen t No Information Instructions Date Instruction Additional Infor mation No Information Assessments Type Assessment Date No Information Patient Care Teams Name Effective Dates (start - stop) Status Members No Information
--- OUTSIDE RECORDS SUMMARY | 2025-03-05 00:33 | XMS_ITS | Continuity of Care Document ---
Author Organization [facility] Address [address] [place] [address] Phone Care Team Providers Care Supervisor Whipped Topping Name Role Phone Gaspar OD, Pelon Unavailable Unavailable Advance Directives Directive Yes / No Effective Date File Name No Information Encounters Encounter Description Practice Location Reason(s) For Visit Diagnoses Date Provider Providers Copied on Encounter [facility], [address], [place], [place], [id number], [place] tel:[phone] [facility] No Information Abel-0 [id number] 1 Gaspar OD Pelon. [address] , [address], [place], [address], [place]. tel:[phone] Family History Family Member Type Diagnosis Age At Onset No Information Payers Payer name Insurance type Covered libertarian ID Authoriza tion(s) No Information Social History Type Description Quantity Date Captured [...]
--- OUTSIDE RECORDS SUMMARY | 2025-03-05 00:33 | XMS_ITS ---
Author Organization [facility] Address [address] [place], [place] [phone] Care Team Providers Care Guitar Maker Hand Name Role Phone RIKKI DURAN Unavailable [phone] Jesse Giordano Unavailable Unavailable REASON FOR VISIT SURGERY Encounters Encounter Location Date Provider Diagnosis [facility] [address] [place], [place] [phone] 07/24/2024 RIKKI DURAN Plan Of Treatment Next Appt Details Provider Name:RIKKI NUÑEZ, 03/05/2025 12:00:00 PM, [address], [place], [address], Provider Name:RIKKI Trace NUÑEZ, 03/12/2025 09:10:00 AM, [address], [place], [place], [phone], Progress Notes * Olga LAYOB:1960 ( 64 yo F)Acc No.[id number]:07/24/2024 Patient: Giuliano CALDERON :1960 A ge:64 Y S ex:Female Address:[address] [place] [phone] * true * Date: Generated for Printi ng/Faxing/eTransmitting on: 0 03/05/2025 12:33 AM CDT
[2025-03-05 10:43] VITALS: BP 138/77; PULSE 66; RESP 18; TEMP 36.3; O2SAT 100
[2025-03-05] MEDS: LACTATED RINGERS 1,000 ML 30 ML IV CONT (11:00)
--- NOTE | 2025-03-05 11:39 | PM.IMHP ---
H&P: HPI History of Present Illness Date/Time: 03/05/25 11:39 Chief Complaint: painful tailors bunion left foot that has failed conservative therapy. [facility] Past Medical History Medical History Lumbar stenosis Lumbar stenosis Simple endometrial hyperplasia Arthritis Herpes Constipation Mumps Chicken pox Pain Depression Pneumonia Surgical History Surgical History H/O section 1981 H/O: hysterectomy 2010 Family History Family History Mother Diabetes mellitus Father Family history of malignant neoplasm Social History Social History Social History: Caffeine-daily Smoking status: Never smoker Alcohol intake: current Drinks per week: 6 Alcohol use details: Pt drinks socially. Substance use: never Substance use type: does not use Lack of Transportation: No Lack of Food: Never True Current Housing: I Have Housing Concerned About Future Housing: No Difficulty Paying Gas/Electric Bills: No Difficulty Paying for Meds: No Currently Unemployed: No Education: Bachelor's Degree Difficulty w/ Childcare or Family Care: No Meds Home Medications and Allergies Home Medications ?Medication ?Instructions ?Recorded ?Confirmed ?Type cholecalciferol (vitamin D3) 50 2,000 unit PO DAILY 04/02/20 03/05/25 History mcg (2,000 unit) capsule (Vitamin D3) calcium 600 mg capsule 600 mg PO DAILY 02/19/25 03/05/25 History Allergies Allergy/AdvReac Type Severity Reaction Status Date / Time acyclovir Allergy Unknown Swelling Verified 03/05/25 11:05 Sulfa (Sulfonamide Allergy Unknown Swelling Verified 03/05/25 11:05 Antibiotics) Vital Signs Vital Signs - 24 hr 03/05/25 10:43 Temperature 36.3 C L Pulse Rate 66 Respiratory Rate 18 Blood Pressure 138/77 Pulse Oximetry 100 Oxygen Delivery Room Air Exam Extrem: Left lower extremity: normal capillary refill and foot (5th metatarsal head) Details: tenderness and vascular exam Details: dorsalis pedis pulse present and posterior tibial pulse present Assessment and Plan Assessment and plan (1) Tailor's bunion of left foot: Code(s): M21.622 - Bunionette of left foot Status: Acute Plan Tailor's bunionectomy left foot
--- NOTE | 2025-03-05 11:42 | WPDHPUPDATE1 ---
History and Physical Update Update Date/Time: 03/05/25 11:42 History and Physical has been reviewed, including an updated exam of the patient. There are NO changes in the patient's condition. Risks, benefits, and alternatives have been discussed and questions answered. Patient agrees to proceed with procedure.
--- NOTE | 2025-03-05 11:50 | P.PNAN_ITS ---
Anes - Initial Pre Proc Eval Procedure: Operation Date: 03/05/25 12:00 Proposed Procedures p Tailor Bunionectomy Fifth Metatarsal Osteotomy Left Foot with Hardware - Long Brown DPM Date/Time: 03/05/25 11:50 Surgeon: Long Brown DPM Pre Op Diagnosis: Bunionette Left Foot Patient Data Age: 64 Gender: F Height: 1.73 m Weight: 82 kg Last Vital Signs Temp 97.3 F L 03/05/25 10:43 Pulse 66 03/05/25 10:43 Resp 18 03/05/25 10:43 BP 138/77 03/05/25 10:43 Pulse Ox 100 03/05/25 10:43 O2 Del Method Room Air 03/05/25 10:43 Allergies Allergy/AdvReac Type Severity Reaction Status Date / Time acyclovir Allergy Unknown Swelling Verified 03/05/25 11:05 Sulfa (Sulfonamide Allergy Unknown Swelling Verified 03/05/25 11:05 Antibiotics) Home Medications ?Medication ?Instructions ?Recorded ?Confirmed ?Type cholecalciferol (vitamin D3) 50 2,000 unit PO DAILY 04/02/20 03/05/25 History mcg (2,000 unit) capsule (Vitamin D3) calcium 600 mg capsule 600 mg PO DAILY 02/19/25 03/05/25 History Patient hx anesthesia problems: none Family hx anesthesia problems: none Results Review: All pre-operative results and documents have been reviewed as part of the pre- operative evaluation. [facility] Past Medical History Medical History Lumbar stenosis Lumbar stenosis Simple endometrial hyperplasia Arthritis Herpes Constipation Mumps Chicken pox Pain Depression Pneumonia Surgical History Surgical History H/O section 1981 H/O: hysterectomy 2010 Family History Family History Mother Diabetes mellitus Father Family history of malignant neoplasm Social History Social History Social History: Caffeine-daily Smoking status: Never smoker Alcohol intake: current Drinks per week: 6 Alcohol use details: Pt drinks socially. Substance use: never Substance use type: does not use Lack of Transportation: No Lack of Food: Never True Current Housing: I Have Housing Concerned About Future Housing: No Difficulty Paying Gas/Electric Bills: No Difficulty Paying for Meds: No Currently Unemployed: No Education: Bachelor's Degree Difficulty w/ Childcare or Family Care: No Anes - Eval Final PreProcedure Day of Procedure 03/05/25 11:50 Patient weight: normal Lungs: normal air movement Airway: Mallampati scale class II Neurological: alert and oriented Last oral intake: >/= 8 hours ASA classification: I Anesthesia type and monitoring: general GIVS and standard monitoring Results Review: All pre-operative results and documents have been reviewed as part of the pre- operative evaluation. Informed Consent: The patient's anesthetic plan and its attendant risks and benefits were discussed with the patient/family/POA. Questions were solicited and answers provided to the satisfaction of the patient/family/POA.
[2025-03-05] MEDS: ceFAZolin 2 GM/D5W 50 ML 2 GM/50 ML BAG IVPB (12:05)
[2025-03-05] MEDS: BUPivacaine HCL 0.5% PF 30 ML VIAL INFILTRATE (12:05)
[2025-03-05] MEDS: LIDOCAINE 1% LOCAL INJ 20 ML VIAL 5 ML INFILTRATE (12:05)
[2025-03-05 13:00] VITALS: BP 89/46; PULSE 66; RESP 14; O2SAT 100
--- NOTE | 2025-03-05 13:14 | P.OP_ITS ---
Procedure Note - Detailed Date of Procedure 03/05/25 Pre-op Diagnosis Bunionette Left Foot Post-op Diagnosis Same Procedure Performed Tailor's bunionectomy left foot Surgeon Long Brown DPM Residential Roofer None Anesthesia MAC Description of Procedure Under monitored sedation patient was brought into the operating room, placed on the operating table. Following general anesthesia the foot was then scrubbed, prepped, and draped in the usual aseptic manner. Esmark bandage was used to exsanguinate the patient?s right foot and the ankle tourniquet inflated to 250mm. Attention was directed to the 5 th metatarsal where a linear incision was made over the 5 th metatarsal. It was deepened down to the level of the bone using sharp and blunt dissection. Care was taken to identify and retract all vital, neural and vascular structures. A v-type osteotomy was performed and the capital fragment was shifted medially. It was fixated with 2.0 Asnis screw x 2. At this time it was noted that excellent correction was obtained. The fracture was fixated using one 2.0 lag screw and a plate with 3 2.0 locking screws. Wound was flushed with copious amounts of sterile normal saline. Deep tissue repaired using 3-0 vicryl and skin repaired using 5-0 vicryl. The wound was then covered with a dry, sterile compressive dressing consisting of Steristrips, antibiotic ointment, Adaptic, 4 x 4?s, Sakina and Coban. The ankle tourniquet was deflated and prompt capillary refill response noted to all digits of the right foot. Patient tolerated procedure and anesthesia well. She was transferred to the recovery room with vital signs stable and neurovascular status intact to all digits of the right foot. Following a period of post-operative monitoring the patient will be discharged home with written and oral post-operative instructions. Drains No Packing No Pathology None sent Complications No immediate complications Condition Stable Disposition PACU
[2025-03-05 13:30] VITALS: BP 104/72; PULSE 70; RESP 14
[2025-03-05 14:00] VITALS: BP 129/75; PULSE 65
== END 2025-03-05 14:16 | disposition home or self-care (01) ==
PROVIDERS: PCP Internal Medicine; Visit Provider Podiatrist Foot & Ankle Surgery
PROC: (CPT 28299; principal; 2025-03-05 12:00)
DX: M21.622 Bunionette of left foot (principal)
CPT/HCPCS: 28110; A9270; J0690; J1100; J2003; J2250; J2405; J2704; J3010; J7120

== ENCOUNTER 2025-03-18 08:26 | Outpatient (CLI) | payer MEDICARE, OTHER, SELFPAY ==
--- OUTSIDE RECORDS SUMMARY | 2025-03-18 08:51 | XMS_ITS ---
Author Organization [facility] Address [address] [place], [place] [phone] Care Team Providers Care Assembly Detailer Name Role Phone RIKKI BROWN Unavailable [phone] Jesse Giordano Unavailable Unavailable REASON FOR VISIT [facility] Encounters Encounter Location Date Provider Diagnosis [facility] [address] [place] [phone] 03/05/2025 RIKKI BROWN Plan Of Treatment Next Appt Details Provider Name:RIKKI NUÑEZ, 03/19/2025 09:10:00 AM, [address], [facility], [place], [place], [phone], Progress Notes * Olga LAYOB:1960 ( 64 yo F)Acc No.[id number]:03/05/2025 Patient: John CALDERONin Provider: Leslie Brown DPM :1960 A ge:64 Y S ex:Female Date:03/05/2025 Address:[address] [place] [address] Trace [place]AS [phone] * Billing Information: * Visit Code: * Procedure Codes: * Electronic signature of RIKKI BROWN DPM on 03/18/2025 at 08:51 AM CDT Sign off status: Pending * Provider: Leslie Brown DPM Date: 0 03/05/2025 Generated for Isrrael weir/Joey/Herminio on: 0 03/18/2025 08:51 AM CDT
--- OUTSIDE RECORDS SUMMARY | 2025-03-18 08:51 | XMS_ITS ---
Author Organization [facility] Address [address] [place], [place] [phone] Care Team Providers Care Sample Maker Hand Name Role Phone RIKKI DURAN Unavailable [phone] Jesse Giordano Unavailable Unavailable RIKKI WEST Unavailable [phone] Medications Medication SIG (Take, Route, Frequency, Duration) Notes Start Date End Date Status HYDROcodone-Acetaminophen 5-325 MG 1 tablet as needed Orally every 6 hrs 03/05/2025 Active Encounters Encounter Location Date Provider Diagnosis [facility] [place] [address] [facility] [address] [place], [place] [phone] 03/05/2025 RIKKI WEST Plan Of Treatment Medication Medication Name Sig Start Date Stop Date Notes HYDROcodone-Acetaminophen 5- 325 MG 1 tablet as needed Orally every 6 hrs 03/05/2025 Next Appt Details Provider Name:RIKKI NUÑEZ, 03/19/2025 09:10:00 AM, [address], [place], [place], [phone], Progress Notes * Olga LAYOB:1960 ( 64 yo F)Acc No.[id number]:03/05/2025 Patient: Giuliano CALDERON :1960 A ge:64 Y S ex:Female Address:[address] [place] [address] [place] [address] * Refills Start HYDROcodone-Acetaminophen Tablet, 5-325 MG, Orally, 20, 1 tablet as needed, every 6 hrs, Refills=0 * true * Date: Generated for Isrrael weir/Joey/Herminio on: 0 03/18/2025 08:51 AM CDT
--- OUTSIDE RECORDS SUMMARY | 2025-03-18 08:52 | XMS_ITS ---
Author [facility] Address [address] [place], [place] [phone] Care Team Providers Care Inspector Tester Sorter Name Role Phone RENEE RIKKI Unavailable [phone] Jesse Giordano Unavailable Unavailable Allergies Allergen (clinical drug ingredient) Drug/Non Drug Allergy documented on EMR Reaction Allergy Type Onset Date Status Substance with sulfonamide structure and antibacterial mechanism of action (substance) Sulfa Antibiotics Unknown Drug Allergy Active REASON FOR VISIT 1ST POST OP Medications Medication SIG (Take, Route, Frequency, Duration) Notes Start Date End Date Status hydrOXYzine HCl 25 MG 1 tablet as needed Orally Once a day Active HYDROcodone-Acetaminophen 5-325 MG 1 tablet as needed Orally every 6 hrs 03/05/2025 Active Social History Tobacco Use: Social History Observation Description Date Details (start date - stop date) Never Smoker NA - NA Tobacco Control (Standard) Question Answer Notes Tobacco use: Nonsmoker Vital Signs Height 68 in 03/12/2025 Weight 178 lbs 03/12/2025 BMI 27.06 kg/m2 03/12/2025 Height-cm 172.72 cm 03/12/2025 Weight-kg 80.74 kg 03/12/2025 Encounters Encounter Location Date Provider Diagnosis [facility] [address] [place], [place] [phone] 03/12/2025 RIKKI BROWN Assessments Encounter Date Diagnosis (ICD Code) Assessment Notes Treatment Notes Treatment Clinical Notes Section Notes 03/12/2025 Other Dressing Change : The old dressing was removed. Utilizing aseptic technique, a new sterile compression dressing was applied. Patient was instructed to keep it dry and not remove it. Plan Of Treatment Treatment Notes Assessment Notes Other Dressing Change: The old dressing was removed. Utilizing aseptic technique, a new sterile compression dressing was applied. Patient was instructed to keep it dry and not remove it. Next Appt Details Provider Name:RIKKI NUÑEZ, 03/19/2025 09:10:00 AM, [address], [address], [phone], Progress Notes * Olga LAYOB:1960 ( 64 yo F)Acc No.[id number]:03/12/2025 Patient: Giuliano CALDERON Provider: Leslie Brown DPM :1960 A ge:64 Y S ex:Female Date:03/12/2025 Address:[address] [place] [phone] Subjective: * Chief Complaints: * 1 . 1ST POST OP. * HPI: H PI: Follow Up Visit P atient presents for follow-up visit for surgery on her left foot. Patient states their problem is improving. She states she has not really had any pain and denies any problems. MA: sea. * ROS: G eneral / Constitutional: Patient denies c hills, fever. C ardiovascular: Patient denies c hest pain. * Medical History: V aricose veins. * Family History: F ather: unknown, cancer, lung disease. M other: unknown, Cancer, kidney stones. B rother: unknown, kidney stones, hypertension. * Social History: T obacco Use: T obacco Control (Standard) T obacco use: N onsmoker * Medications: T aking hydrOXYzine HCl 25 MG Tablet 1 tablet as needed Orally Once a day , Taking HYDROcodone-Acetaminophen 5-325 MG Tablet 1 tablet as needed Orally every 6 hrs , Medication List reviewed and reconciled with the patient * Allergies: S ulfa Antibiotics. Objective: * Vitals: S hoe Size: 9.5-10, Wt:178lbs, Wt-k.74 kg, Ht: 68 in, Ht-cm: 172.72 cm, BMI:27.06Index, Body Surface Area: 1.97. * Examination: P hysical Examination: Gen: T he patient is awake, alert, well developed, well groomed and well nourished. They are in no apparent distress. . Musc: T he pain is decreasing. Foot structure is normal. .? Derm: W ound clean and well approximated without drainage. Sutures are intact. . Neuro: G rossly intact to light touch bilateral. . Vasc: D orsalis pedis and posterior tibial pulses 2+ bilaterally. Edema consistent with post-operative course noted. Capillary fill time < 3 seconds to all digits. Negative Hilaria's sign . Dressing: D ressing is dry and intact. . ? X -Ray: LEFT FOOT X -rays reveal good correction of the deformities and position of the osteotomies. All hardware is in good position. . Assessment: Plan: * Treatment: * Billing Information: * Visit Code: * Procedure Codes: * Electronic signature of RIKKI BROWN DPM on 03/18/2025 at 08:51 AM CDT Sign off status: Pending * Provider: Leslie Brown DPM Date: 0 03/12/2025 Generated for Isrrael weir/Joey/Herminio on: 0 03/18/2025 08:51 AM CDT History and Physical Notes * HPI (History of Present Illness) Category Sub-Category Detail Notes Category Not es HPI Follow Up Visit Patient presents for follow-up visit for surgery on her left foot. Patient states their problem is improving. She states she has not really had any pain and denies any problems. MA: rosey Examination Category Sub-Category Detail Notes Category Not es X-Ray LEFT FOOT X-rays reveal go od correction of the deformities and position of the osteotomies. All hardware is in good position. Physical Examination Gen: The patient is awake, alert, well developed, well groomed and well nourished. They are in no apparent distress. Vasc: Dorsalis pedis and p osterior tibial pulses 2+ bilaterally. Edema consistent with post-operative course noted. Capillary fill time < 3 seconds to all digits. Negative Hilaria's sign Neuro: Grossly intact to li ght touch bilateral. Musc: The pain is decreasi ng. Foot structure is normal. Dressing: Dressing is dry and intact. Derm: Wound clean and well approximated without drainage. Sutures are intact.
--- OUTSIDE RECORDS SUMMARY | 2025-03-18 08:52 | XMS_ITS | Clinical Summary ---
Author Organization [facility] Address [address] [place] [address] Care Team Providers Care Brand Recorder Name Role Phone Jan Shepherd MD, Onel [...] 07/12/2023 Assessment & Plan (11/14/2023 8:42 AM TECHNOLOGIST INFECTIOUS DISEASE): Status post left lower extremity stab phlebectomies, [...] on file Legal Sex Female 10:25 AM TECHNOLOGIST INFECTIOUS DISEASE Gender Identity Not on file Sexual Orientation Not on file Obstetrics History Last Filed Vital Signs Vital Sign Reading Time Taken Comments Blood Pressure 120/77 11/14/2023 8:31 AM TECHNOLOGIST INFECTIOUS DISEASE Pulse 76 11/14/2023 8:31 AM TECHNOLOGIST INFECTIOUS DISEASE Temperature - - Respiratory Rate - - Oxygen Saturation - - Inhaled Oxygen Concentration - - Weight 79.4 kg (175 lb) 11/14/2023 8:31 AM TECHNOLOGIST INFECTIOUS DISEASE Height 172.7 cm (5' 8 ) 11/14/2023 8:31 AM TECHNOLOGIST INFECTIOUS DISEASE Body Mass Index 26.61 11/14/2023 8:31 AM TECHNOLOGIST INFECTIOUS DISEASE Plan of Treatment Health Maintenance Due Date [...] to Subscriber:Self Name:Sujit, Giuliano Cornelia Payer ID:[id number] ([employer]) Type:MEDICARE RISK OTHER Address: [address] [facility] [place] [address] Care Teams Brand Recorder Relationship Specialty Start Date End Date Onel Montoya Jr., MD [address] [place] [address] PCP - General 06/22/15
--- OUTSIDE RECORDS SUMMARY | 2025-03-18 08:52 | XMS_ITS | Referral Summary ---
Author Organization [facility] Address [address] [place] [address] Care Team Providers Care Ice Cream Truck Driver Name Role Phone Jan Shepherd MD, Onel [...] 07/12/2023 Assessment & Plan (11/14/2023 8:42 AM COMMUNITY ORGANIZATION DIRECTOR): Status post left lower extremity stab phlebectomies, [...] on file Legal Sex Female 10:25 AM COMMUNITY ORGANIZATION DIRECTOR Gender Identity Not on file Sexual Orientation Not on file Last Filed Vital Signs Vital Sign Reading Time Taken Comments Blood Pressure 120/77 11/14/2023 8:31 AM COMMUNITY ORGANIZATION DIRECTOR Pulse 76 11/14/2023 8:31 AM COMMUNITY ORGANIZATION DIRECTOR Temperature - - Respiratory Rate - - Oxygen Saturation - - Inhaled Oxygen Concentration - - Weight 79.4 kg (175 lb) 11/14/2023 8:31 AM COMMUNITY ORGANIZATION DIRECTOR Height 172.7 cm (5' 8 ) 11/14/2023 8:31 AM COMMUNITY ORGANIZATION DIRECTOR Body Mass Index 26.61 11/14/2023 8:31 AM COMMUNITY ORGANIZATION DIRECTOR Plan of Treatment Not on file Insurance O O Care Teams Ice Cream Truck Driver Relationship Specialty Start Date End Date Onel Montoya Jr., MD [address] [place] [address] PCP - General 06/22/15
--- OUTSIDE RECORDS SUMMARY | 2025-03-18 08:52 | XMS_ITS | Patient Health Record ---
Author Organization [facility] Address [address] [place], [place] [id number] Care Team Providers Care Service Desk Director Name Role Phone RIKKI DURAN Unavailable [phone] Jesse Giordano Unavailable Unavailable RIKKI WEST Unavailable [phone] Allergies Allergen (clinical drug ingredient) Drug/Non Drug Allergy documented on EMR Reaction Allergy Type Onset Date Status Substance with sulfonamide structure and antibacterial mechanism of action (substance) Sulfa Antibiotics Unknown Drug Allergy Active Reason For Referral No Information Medications Medication SIG (Take, Route, Frequency, Duration) Notes Start Date End Date Status hydrOXYzine HCl 25 MG 1 tablet as needed Orally Once a day Active HYDROcodone-Acetaminophen 5-325 MG 1 tablet as needed Orally every 6 hrs 03/05/2025 Active Immunizations Vaccine Route Administration Date Status Comme nts Influenza, quadrivalent, spl it, preservative free, 3 years or older Unknown 10/03/2021 Administered Social History Tobacco Use: Social History Observation Description Date Details (start date - stop date) Never Smoker NA - NA Tobacco Control (Standard) Question Answer Notes Tobacco use: Nonsmoker Vital Signs Height-cm 172.72 cm 03/12/2025 Weight-kg 80.74 kg 03/12/2025 Height 68 in 03/12/2025 Weight 178 lbs 03/12/2025 BMI 27.06 kg/m2 03/12/2025 Encounters Encounter Location Date Provider Diagnosis [place] [address] [place] [phone] 03/05/2025 RIKKI DURAN [facility] [place] [address] [place] [id number] 03/12/2025 RIKKI DURAN [facility] [place] [address] [place] [id number] 07/24/2024 RIKKI DURAN Tailor's bunion of right foot M21.621 ; Tailor's bunion of left foot M21.622 ; Pain in right foot M79.671 and Left foot pain M79.672 [facility] [place] [address] [place] [id number] 10/02/2024 RIKKI DURAN Tailor's bunion of right foot M21.621 ; Tailor's bunion of left foot M21.622 ; Pain in right foot M79.671 and Left foot pain M79.672 [facility] [address] [place], [place] [id number] 07/24/2024 RIKKI DURAN [facility] [address] [facility] [address] [place], [place] [id number] 03/05/2025 RIKKI WEST Assessments Encounter Date Diagnosis (ICD Code) Assessment [...] 10/02/2024 Left foot pain (ICD-10 - M79.672) 03/12/2025 Other Dressing Change : The old dressing was removed. Utilizing aseptic technique, a new sterile compression dressing was applied. Patient was instructed to keep it dry and not remove it. 07/24/2024 Other Surgical correction was discussed. The patient opted not to proceed at this time. Plan Of Treatment Next Appt Details Provider Name:RIKKI Woodward BRANDEN SAVANNAH, 03/19/2025 09:10:00 AM, [address], [place], [place], [id number], Insurance Providers Payer Name Payer Address Payer Phone Subscriber Number Group Number Insured Name Patient Relationship to Insured Coverage Start Date Coverage End Date [facility] [address] [address] [place] [id number] Giuliano Beckett Self - patient is the insured Medical (General) History Medical History History ICD Code varicose veins
[2025-03-18 20:00] LABS: Basophils Absolute Auto 0.1 K/mm3 (0.0-0.1); Basophils Percent Auto 1.2 % (0.2-1.2); Eosinophils Absolute Auto 0.2 K/mm3 (0-0.3); Eosinophils Percent Auto 5.1 % (0-4.4); Hematocrit 42.7 % (37.0-47.0); Hemoglobin 12.8 g/dL (12.0-15.0); Immature Granulocyte Absolute 0.01 K/mm3 (0.00-0.031); Immature Granulocyte Percent A 0.2 % (0-0.5); Lymphocytes Absolute Auto 1.55 K/mm3 (0.9-3.2); Lymphocytes Percent Auto 36.2 % (18.3-44.2); Mean Corpuscular Hemoglobin 26.5 pg (26-34); Mean Corpuscular Volume 88.4 fl (80-100); Monocytes Absolute Auto 0.3 K/mm3 (0.1-0.6); Monocytes Percent Auto 7.2 % (2.6-8.5); Neutrophils Absolute Auto 2.1 K/mm3 (1.3-6.7); Neutrophils Percent Auto 50.1 % (45.5-73.1); Platelet Count Result 231 k/mm3 (150-375); Red Blood Count 4.83 M/mm3 (4.2-5.4); Red Cell Distribution Width 13.4 % (11.5-14.5); White Blood Count 4.3 K/mm3 (4.5-10.0)
[2025-03-18 21:22] LABS: Vitamin D 25 Hydroxy 54.3 ng/mL
[2025-03-18 21:27] LABS: Alanine Aminotransferase 27 U/L (6-35); Albumin Level 4.4 g/dL (3.5-5.1); Alkaline Phosphatase 72 U/L (38-126); Anion Gap 7 mmol/L (4-12); Aspartate Amino Transferase 58 U/L (14-36); Bilirubin,Total 0.6 mg/dL (0.2-1.3); Blood Urea Nitrogen 18 mg/dL (7-17); Calcium 9.4 mg/dL (8.4-10.2); Carbon Dioxide 30 mmol/L (22-30); Chloride 101 mmol/L (98-107); Cholesterol 272 mg/dL (0-200); Estimated Glomerular Filt Rate > 60; Glucose 82 mg/dL (65-110); HDL Direct 100 mg/dL; Potassium 4.1 mmol/L (3.4-5.0); Sodium 138 mmol/L (137-145); Triglycerides 68 mg/dL (<150)
[2025-03-18 21:44] LABS: LDL Cholesterol Direct 118 mg/dL
== END 2025-03-18 08:27 | disposition home or self-care (01) ==
LOC: ANHGOSHLAB 08:27
PROVIDERS: PCP Internal Medicine; Visit Provider Nurse Practitioner
DX: E55.9 Vitamin D deficiency, unspecified (principal); R74.8 Abnormal levels of other serum enzymes
CPT/HCPCS: 36415; 80053; 80061; 82306; 85025

== ENCOUNTER 2025-09-24 12:34 | Outpatient (CLI) | payer MEDICARE, OTHER, SELFPAY ==
--- OUTSIDE RECORDS SUMMARY | 2025-03-05 07:00 | XMS_ITS ---
Author Organization [facility] Address [address] [place], [place] [phone] Care Team Providers Care Industrial Gas Fitter Helper Name Role Phone RIKKI BROWN Unavailable [phone] Jesse Giordano Unavailable Unavailable REASON FOR VISIT [facility] Encounters Encounter Location Date Provider Diagnosis [address] [place] [phone] 03/05/2025 RIKKI BROWN Plan Of Treatment No Information Progress Notes * ROSANNE JohninDOB:1960 ( 65 yo F)Acc No.[id number]:03/05/2025 Patient: Giuliano Colin Provider: Leslie Brown DPM :1960 A ge:64 Y S ex:Female Date:03/05/2025 Address:[address] [place], [place] [phone] Billing Information: * Procedure Codes: * Electronic signature of RIKKI BROWN DPM on 09/24/2025 at 01:10 PM CDT Sign off status: Pending * Provider: Leslie Brown DPM Date: 0 03/05/2025 Generated for Isrrael weir/Joey/eTransmitting on: 1 01:10 PM CDT
--- OUTSIDE RECORDS SUMMARY | 2025-09-24 13:10 | XMS_ITS | Clinical Summary ---
Author Organization [facility] Address [address] [address] Phone Care Team Providers Care Boat Mechanic Name Role Phone Devon Palma MD Unavailable [phone] Jesse Giordano DO Primary Care Provider Allergies Active Allergy Reactions Criticality Noted Date Comments Sulfa Antibiotics Other (see Comments) 06/17/20 25 Medications No known medications Social History Tobacco Use Types Packs/Day Years Used Date Smoking Tobacco: Never Smokeless Tobacco: Never Tobacco Cessation:Counseling Given: Not Answered Alcohol Use Standard Drinks/Week Comments Yes 0 (1 standard drink = 0.6 oz pur e alcohol) AUDIT-C Answer Date Recorded Q1: How often do you have a drink containing alc ohol? Monthly or less 06/17/2025 Q2: How many drinks containi ng alcohol do you have on a typical day when you are drinking? 1 or 2 06/17/2025 Q3: How often do you have si x or more drinks on one occasion? Never 06/17/2025 Comments Unknown Sex and Gender Information Value Date Recorded Sex Assigned at Not on file Legal Sex Female 2:51 PM CDT Gender Identity Not on file Sexual Orientation Not on file Last Filed Vital Signs Vital Sign Reading Time Taken Comments Blood Pressure 114/72 06/17/2025 8:49 AM CDT Pulse 64 06/17/2025 8:49 AM CDT Temperature - - Respiratory Rate - - Oxygen Saturation 100% 06/17/2025 8:49 AM CDT Inhaled Oxygen Concentration - - Weight 82.1 kg (181 lb) 06/17/2025 8:49 AM CDT Height 170.2 cm (5' 7) 06/17/2025 8:49 AM CDT Body Mass Index 28.35 06/17/2025 8:49 AM CDT Plan of Treatment Health Maintenance Due Date Last Done Comments DEXA Bone Density 1960 Hepatitis C Virus (HCV) Screening 1960 Mammogram 1960 Cologuard 2003 Colonoscopy 2003 Colorectal Cancer Screening 2003 Immunochemical Fecal Occult Blood 2003 SARS-COV-2 Immunization (3 - Pfizer risk series) 03/12/2021 02/12/2021, 01/22/2021 Welcome to Medicare (IPPE) G0402 11/26/2024 Influenza Immunization (#1) 07/27/202508/27, 10/03/2021 Respiratory Syncytial Virus (RSV) Immunization (Adult) (1 - 1-dose 75+ series) 2033 Zoster Immunization Completed 11/22/2020, 09/21/2020 Pneumococcal Immunization (5 0+ years) Completed 09/14/2023 TdaP Immunization Completed 03/25/2025 Hepatitis B Immunization Aged Out No longer eligible based on patient's age to complete this topic Human Papillomavirus (HPV) Immunization Aged Out No longer eligible b ased on patient's age to complete this topic Meningococcal Immunization (ACWY) Aged Out No longer eligible b ased on patient's age to complete this topic Rotavirus Immunization Aged Out No lo nger eligible based on patient's age to complete this topic [facility] Care Teams Boat Mechanic Relationship Specialty Start Date End Date Jesse Giordano DO [address] [place], [place] [id number] PCP - General Primary Care 06/17/25 Devon Palma MD [address] [phone] Consulting Physician General Surgery 06/15/25
--- OUTSIDE RECORDS SUMMARY | 2025-09-24 13:10 | XMS_ITS | Patient Health Record ---
Author Organization [facility] [employer] Address [address] [facility] [address] [place] [address] Care Team Providers Care Nougat Candy Maker Helper Name Role Phone Blayne Villa Unavailable [phone] Reason For Referral No Information Medications Medication SIG (Take, Route, Frequency, Duration) Notes Start Date End Date Status Citalopram Hydrobromide 10 MG Tablet Oral Active hydrOXYzine HCl 25 MG Tablet Oral Active Venlafaxine HCl ER 37.5 MG Capsule Extended Release 24 Hour Oral Active predniSONE 20 MG Tablet Oral Active Naproxen 250 MG Tablet Oral Active Plan Of Treatment No Information Insurance Providers Payer Name Payer Address Payer Phone Subscriber Number Group Number Insured Name Patient Relationship to Insured Coverage Start Date Coverage End Date [facility] [address] [place] [address] [id number] RODRIGO LAY Self - patient is the insured
--- OUTSIDE RECORDS SUMMARY | 2025-09-24 13:11 | XMS_ITS | Patient Health Record ---
Author Organization [facility] Address [address] [place], [place] [phone] Care Team Providers Care Renovator Machine Operator Name Role Phone RIKKI DURAN Unavailable [phone] Jesse Giordano Unavailable Unavailable ANTIONETTEKasie RIKKI Unavailable [phone] Allergies Allergen (clinical drug ingredient) Drug/Non Drug Allergy documented on EMR Reaction Allergy Type Onset Date Status Substance with sulfonamide structure and antibacterial mechanism of action (substance) Sulfa Antibiotics Unknown Drug Allergy Active Reason For Referral No Information Medications Medication SIG (Take, Route, Frequency, Duration) Notes Start Date End Date Status hydrOXYzine HCl 25 MG Tablet 1 tablet as needed Orally Once a day Active HYDROcodone-Acetaminophen 5-325 MG Tablet 1 tablet as needed Orally every 6 hrs 03/05/2025 Active Immunizations Vaccine Route Administration Date Status Comme nts Influenza, quadrivalent, spl it, preservative free, 3 years or older Unknown 10/03/2021 Administered Influenza, quadrivalent, spl it, preservative free, 3 years or older Unknown 10/03/2021 Administered Influenza, quadrivalent, spl it, preservative free, 3 years or older Unknown 10/03/2021 Administered Social History Tobacco Use: Social History Observation Description Date Details (start date - stop date) Never Smoker NA - NA Social History Tobacco Use: Social Info Question Answer Notes Tobacco Control (Standard) Tobacco use: Nonsmoker Additional Details Category Social Info Options Details Drugs/Alcohol: Do you drink alcohol? Yes Vital Signs Height-cm 172.72 cm 04/16/2025 Weight-kg 80.74 kg 04/16/2025 Height 68 in 04/16/2025 Weight 178 lbs 04/16/2025 BMI 27.06 kg/m2 04/16/2025 Encounters Encounter Location Date Provider Diagnosis [place] [address] [phone] 03/05/2025 RIKKI DURAN [facility] [place] [address] [place], [place] [id number] 10/02/2024 RIKKI DURAN Tailor's bunion of right foot M21.621 ; Tailor's bunion of left foot M21.622 ; Pain in right foot M79.671 and Left foot pain M79.672 [facility] [place] [address] [place] [id number] 03/12/2025 RIKKI OLMSTEADROWENA Tailor's bunionette, left M21.622 ; Left foot pain M79.672 and Encounter for other specified surgical aftercare Z48.89 [facility] [place] [address] [place], [place] [id number] 03/19/2025 RIKKI DURAN Tailor's bunion of left foot M21.622 ; Left foot pain M79.672 and Encounter for other specified surgical aftercare Z48.89 [facility] [place] [address] [place], [place] [id number] 04/16/2025 RIKKI RENEE Tailor's bunion of left foot M21.622 ; Left foot pain M79.672 and Encounter for other specified surgical aftercare Z48.89 [facility] [place] [address] [id number] 03/05/2025 RIKKI WEST Assessments Encounter Date Diagnosis (ICD Code) Assessment Notes Treatment Notes Treatment Clinical Notes Section Notes 10/02/2024 Tailor's bunion of right foot (ICD-10 - M21.621) 03/12/2025 Left foot pain (ICD-10 - M79.672) 03/12/2025 Tailor's bunionette, left (ICD-10 - M21.622) 03/19/2025 Left foot pain (ICD-10 - M79.672) 03/19/2025 Tailor's bunion of left foot (ICD-10 - M21.622) 04/16/2025 Left foot pain (ICD-10 - M79.672) 04/16/2025 Tailor's bunion of left foot (ICD-10 - M21.622) 10/02/2024 Tailor's bunion of left foot (ICD-10 [...] are proposed - Correction of tailor's bunion 04/16/2025 Encounter for other specified surgical aftercare (ICD-10 - Z48.89) 03/19/2025 Encounter for other specified surgical aftercare (ICD-10 - Z48.89) 03/12/2025 Encounter for other specified surgical aftercare (ICD-10 - Z48.89) 10/02/2024 Pain in right foot (ICD-10 - M79.671) 10/02/2024 Left foot pain (ICD-10 - M79.672) 03/12/2025 Other Dressing Change : The old dressing was removed. Utilizing aseptic technique, a new sterile compression dressing was applied. Patient was instructed to keep it dry and not remove it. 03/19/2025 Other Shoes: Patient may return to normal shoes as tolerated in 1 week Suture Removal: The sutures were removed. 04/16/2025 Other I advised the patient that no further treatment is necessary at this time. If the condition should worsen they should call the office. Plan Of Treatment No Information Insurance Providers Payer Name Payer Address Payer Phone Subscriber Number Group Number Insured Name Patient Relationship to Insured Coverage Start Date Coverage End Date [facility] [address] [address] [place] [id number] Giuliano Beckett Self - patient is the insured [employer] CLAIMS [address] [place] [address] [id number] Giuliano Beckett Self - patient is the insured Medical (General) History Medical History History ICD Code varicose veins
--- OUTSIDE RECORDS SUMMARY | 2025-09-24 13:11 | XMS_ITS | Clinical Summary ---
Author Organization [facility] Address [address] [place] [address] Care Team Providers Care Carpet Tile Layer Name Role Phone Jan Shepherd MD, Onel [...] 07/12/2023 Assessment & Plan (11/14/2023 8:42 AM FARM ASSISTANT): Status post left lower extremity stab phlebectomies, [...] on file Legal Sex Female 10:25 AM FARM ASSISTANT Gender Identity Not on file Sexual Orientation Not on file Obstetrics History Last Filed Vital Signs Vital Sign Reading Time Taken Comments Blood Pressure 120/77 11/14/2023 8:31 AM FARM ASSISTANT Pulse 76 11/14/2023 8:31 AM FARM ASSISTANT Temperature - - Respiratory Rate - - Oxygen Saturation - - Inhaled Oxygen Concentration - - Weight 79.4 kg (175 lb) 11/14/2023 8:31 AM FARM ASSISTANT Height 172.7 cm (5' 8) 11/14/2023 8:31 AM FARM ASSISTANT Body Mass Index 26.61 11/14/2023 8:31 AM FARM ASSISTANT Plan of Treatment Health Maintenance Due Date Last Done Comments Breast Cancer Screening-Mammogram 1958 Colon Cancer Screening-Colonoscopy 1958 Depression Screening 1958 Fall Risk Assessment 1958 Hepatitis C Screening 1958 Osteoporosis Screening-Bone Density Scan 1958 DTaP/Tdap/Td Vaccine (1 - Tdap) 1969 Hepatitis B Screening 1976 Pneumococcal vaccine 65+ (1 of 1 - PCV) 2008 Well Visit 65+ 2023 Covid-19 Vaccine (3 - season) 2025, 01/22/2021 Influenza Vaccine (#1) 2025 10/03/2021 Zoster Vaccine Completed 11/22/2020, 09/21/2020 Insurance O Member Subscriber Plan / Payer (Ef fective 2023-Present) Name:SujitGiuliano Cornelia Relation to Subscriber:Self Name:Sujit, Giuliano Cornelia Payer ID:[id number] ([facility]) Type:MEDICARE RISK OTHER Address: [address] [facility] [address] [place] [address] Care Teams Carpet Tile Layer Relationship Specialty Start Date End Date Onel Montoya Jr., MD [address] [place] [address] PCP - General 06/22/15
[2025-09-24 19:07] LABS: Alanine Aminotransferase 20 U/L (6-35); Albumin Level 4.3 g/dL (3.5-5.1); Alkaline Phosphatase 76 U/L (38-126); Aspartate Amino Transferase 40 U/L (14-36); Bilirubin,Total 0.5 mg/dL (0.2-1.3); Total Protein 7.6 g/dL (6.3-8.2)
== END 2025-09-24 12:35 | disposition home or self-care (01) ==
LOC: ANHGOSHLAB 12:35
PROVIDERS: PCP Internal Medicine; Visit Provider Nurse Practitioner
DX: R74.8 Abnormal levels of other serum enzymes (principal)
CPT/HCPCS: 36415; 80076

== ENCOUNTER 2025-10-07 15:09 | Outpatient (CLI) | payer MEDICARE, OTHER, SELFPAY ==
--- NOTE | ~2025-10-07 | XR_ITS ---
EXAMINATION: XR hip LT min 2V DATE: 10/07/2025 15:33 INDICATION: Pain TECHNIQUE: Left hip x-rays were obtained. COMPARISON: None. FINDINGS: No fracture subluxation or dislocation. Mild osteoarthritic appearing degenerative changes. IMPRESSION: Mild degenerative appearing changes. No gross acute or aggressive bony or soft tissue abnormality. Reviewed, dictated and finalized at location A. T IRONER SUPERVISOR IMPRESSION: Mild degenerative appearing changes. No gross acute or aggressive b aishwarya or soft tissue abnormality.
--- NOTE | ~2025-10-07 | XR_ITS ---
EXAMINATION: XR hip RT min 2V DATE: 10/07/2025 15:33 INDICATION: Pain TECHNIQUE: Right hip were obtained. COMPARISON: None. FINDINGS: No fracture subluxation or dislocation. Mild osteoarthritic appearing degenerative changes. IMPRESSION: Mild degenerative appearing changes. No gross acute or aggressive bony or soft tissue abnormality. Reviewed, dictated and finalized at location A. UCT TRAINER IMPRESSION: Mild degenerative appearing changes. No gross acute or aggressive b aishwarya or soft tissue abnormality.
== END 2025-10-07 15:10 | disposition home or self-care (01) ==
LOC: GOSHIMG 15:10
PROVIDERS: PCP Nurse Practitioner; Visit Provider Nurse Practitioner
DX: M16.0 Bilateral primary osteoarthritis of hip (principal)
CPT/HCPCS: 73502